=== PATIENT | female | born 1980 ===

== ENCOUNTER 2020-04-16 10:47 | Outpatient (REF) | payer OTHER, SELFPAY ==
--- NOTE | 2020-04-16 10:55 | XR_ITS ---
EXAMINATION: LEFT WRIST SERIES CLINICAL INFORMATION: Pain in the left hand COMPARISON: None TECHNIQUE: 4 views of the left wrist FINDINGS: The bones joints and soft tissues are normal. XR/XR hand wrist LT IMPRESSION: Normal x-ray series of the left wrist
== END 2020-04-16 10:48 | disposition home or self-care (01) ==
LOC: HO.XRAY 10:47
PROVIDERS: PCP Internal Medicine; Visit Provider Nurse Practitioner Family
DX: M79.642 Pain in left hand (principal)
CPT/HCPCS: 73110; 73130

== ENCOUNTER 2020-07-19 15:34 | Emergency (ER) | payer OTHER, SELFPAY ==
[2020-07-19 15:40] VITALS: BP 113/63; PULSE 84; RESP 16; TEMP 36.7; O2SAT 100; BMI 29.2
--- NOTE | 2020-07-19 16:26 | ED.EXTPRO ---
HPI - Extremity Problem General Chief complaint: Extremity Injury, Upper Stated complaint: left arm tingling and numbness Time Seen by Provider: 07/19/20 16:26 Source: patient Mode of arrival: ambulatory History of Present Illness HPI Narrative: 40 y/o female presenting with recurrent left lower arm/wrist pain, numbness and tingling for the last 2 weeks. She reports her hands swell at times but not currently swollen. It is worse in the morning. She was seen in the office in April for similar complaints. She had a normal XR at that time which was normal. She was treated with Prednisone with improvement in the pain. She works at the [employer] in [place] and has repetitive hand movements and recurrent lifting. She denies any recent trauma or injury. Related Data Home Medications Medication Instructions Recorded Confirmed meloxicam 15 mg tablet 15 mg PO DAILY 04/15/20 Previous Rx's Medication Instructions Recorded cyclobenzaprine 10 mg tablet 10 mg PO BEDTIME 30 Days #30 tab 04/15/20 ibuprofen 800 mg tablet 800 mg PO BID 15 Days #30 tab 04/15/20 prednisone 10 mg tablet 10 mg PO DAILY #18 tab 04/15/20 ibuprofen 600 mg PO Q8H PRN #20 tab 07/19/20 prednisone 20 mg PO DAILY #10 tab 07/19/20 Allergies Allergy/AdvReac Type Severity Reaction Status Date / Time acetaminophen [From PERCOCET] Allergy Unknown NAUSEA & Unverified 02/20/20 19:48 VOMITING oxycodone [From PERCOCET] Allergy Unknown NAUSEA & Unverified 02/20/20 19:48 VOMITING Review of Systems Review of Systems: Constitutional: No Fever, No Chills Musculoskeletal: + joint pain, No Myalgias Skin: No Skin Lesions, No rash Neuro: No Weakness, + Numbness Heme/Lymph: No Bruising, No Lymphadenopathy PMFSH Past Medical History Attestation statement: The following information was validated with the patient. Medical History Migraine Surgical History (Updated 04/13/20 @ 10:09 by ROSARIO Barkley) History of section S/P total abdominal hysterectomy Family History Family History (Updated 04/13/20 @ 10:10 by ROSARIO Barkley) Father Hypertension Mother No problems noted. Social History Social History Advance Directives: No Advance Directives Information Provided: Yes Physical Exam Vital Signs: Vital Signs: Last Vital Signs Temp 98.0 F 07/19/20 15:40 Pulse 84 07/19/20 15:40 Resp 16 07/19/20 15:40 BP 113/63 07/19/20 15:40 Pulse Ox 100 07/19/20 15:40 Body Mass Index 29.2 Appearance: Alert. Oriented X3. No acute distress. HEENT: normal inspection Respiratory: No respiratory distress. Skin: Skin warm and dry. Normal skin color. Normal skin turgor. No rashes. Extremities: normal left hand and wrist inspection. tender wrist on volar aspect with +Tinel sign and +Phalen test. Tender fingers 3-5 with normal ROM. Normal photograph developer strength. no thenar eminence atrophy. Neuro: Oriented X 3. Weak thumb abduction with sensory deficits reported in the median nerve distribuation. Course Course Course Narrative: 40 y/o female with recurrent left hand and lower arm pain, numbness and tingling. Similar presentation in April, improvement with steroids. No trauma. +Phalen's test. Signs and symptoms consistent with carpal tunnel syndrome. Will place in wrist velcro splint and repeat course of steroids. Will have her follow up with for evaluation of decompression. She is agreeable with plan. Discharge Plan Discharge Clinical Impression: Carpal tunnel syndrome Qualifiers: Laterality: left Qualified Code(s): G56.02 - Carpal tunnel syndrome, left upper limb Patient Disposition: Home, Self-Care Instructions: Paresthesia (ED), Carpal Tunnel Surgery (DC) Additional Instructions: Recommend trial of steroid medication to decrease the swelling. Recommend use of wrist splint for comfort, support and immobilization. Wear this at night when your sleep and as needed during the day. Use ice and elevate when possible. Limit repetitive movements and lifting with your left hand. Follow up with the orthopedic doctor for further evaluation. Prescriptions: New prednisone 20 mg tablet 20 mg PO DAILY Qty: 10 RF: 0 ibuprofen 600 mg tablet 600 mg PO Q8H PRN (Reason: pain) Qty: 20 RF: 0 No Action ibuprofen [IBU] 800 mg tablet 800 mg PO BID 15 Days Qty: 30 RF: 0 cyclobenzaprine 10 mg tablet 10 mg PO BEDTIME 30 Days Qty: 30 RF: 0 prednisone 10 mg tablet 10 mg PO DAILY Qty: 18 RF: 0 Referrals: Leandro Oseguera MD [Physician] - 1 week (left arm/hand pain for months, concern for carpal tunnel) Interventions: ED Discharge Assessment Last Done: 07/19/20 17:00 Discharge Date/Time: 07/19/20 17:01 Print Language: Mongolian
== END 2020-07-19 17:01 | disposition home or self-care (01) ==
PROVIDERS: Emergency Provider Emergency Medicine; PCP Internal Medicine
DX: G56.02 Carpal tunnel syndrome, left upper limb (principal); Z79.899 Other long term (current) drug therapy
CPT/HCPCS: 99283

== ENCOUNTER 2020-07-21 15:20 | Outpatient (REF) | payer OTHER, SELFPAY | END 2020-07-21 15:21 | disposition home or self-care (01) | LOC: HO.LAB 15:20 | PROVIDERS: PCP Internal Medicine; Visit Provider Internal Medicine | DX: Z20.822 Contact with and (suspected) exposure to COVID-19 (principal) | CPT/HCPCS: 36415; C9803; U0003; U0005 ==

== ENCOUNTER 2020-08-03 10:01 | Outpatient (REF) | payer OTHER, SELFPAY | END 2020-08-03 10:02 | disposition home or self-care (01) | LOC: HO.LAB 10:01 | PROVIDERS: Visit Provider Internal Medicine | DX: Z20.822 Contact with and (suspected) exposure to COVID-19 (principal) | CPT/HCPCS: 36415; C9803; U0003; U0005 ==

== ENCOUNTER 2021-06-10 10:31 | Outpatient (REF) | payer OTHER, SELFPAY ==
[2021-06-10 14:36] LABS: Binax Internal Control QC Valid; Binax Now Covid-19 Ag Negative (Negative)
== END 2021-06-10 10:32 | disposition home or self-care (01) ==
LOC: HO.HMGCLDS 10:31
PROVIDERS: Visit Provider Internal Medicine
DX: Z20.822 Contact with and (suspected) exposure to COVID-19 (principal)
CPT/HCPCS: 36415; C9803

== ENCOUNTER 2021-07-06 10:23 | Outpatient (REF) | payer OTHER, SELFPAY ==
--- NOTE | ~2021-07-06 | XR_ITS ---
EXAMINATION: XR CALCANEUS, RIGHT XR CALCANEUS, LEFT CLINICAL INFORMATION: Bilateral pain COMPARISON: None TECHNIQUE: Each calcaneus is imaged in lateral and Arita view projections. There are 2 views on each side, total of 4 views. FINDINGS: There is no fracture or dislocation or destructive process on either side. Bony mineralization appears normal. The subtalar joints are unremarkable. The retrocalcaneal recess is preserved on both sides. There is no calcaneal spurring. No mineralization seen along the plantar fascia. XR/XR calcaneus LT min 2V IMPRESSION: Unremarkable bilateral calcaneus.
--- NOTE | ~2021-07-06 | XR_ITS ---
EXAMINATION: XR CALCANEUS, RIGHT XR CALCANEUS, LEFT CLINICAL INFORMATION: Bilateral pain COMPARISON: None TECHNIQUE: Each calcaneus is imaged in lateral and Arita view projections. There are 2 views on each side, total of 4 views. FINDINGS: There is no fracture or dislocation or destructive process on either side. Bony mineralization appears normal. The subtalar joints are unremarkable. The retrocalcaneal recess is preserved on both sides. There is no calcaneal spurring. No mineralization seen along the plantar fascia. XR/XR calcaneus RT min 2V IMPRESSION: Unremarkable bilateral calcaneus.
== END 2021-07-06 10:24 | disposition home or self-care (01) ==
LOC: HO.XRAY 10:23
PROVIDERS: PCP Internal Medicine; Visit Provider Nurse Practitioner Acute Care
DX: M79.671 Pain in right foot (principal); M79.672 Pain in left foot
CPT/HCPCS: 73650

== ENCOUNTER 2021-09-23 14:52 | Outpatient (REF) | payer OTHER, SELFPAY ==
[2021-09-23 15:43] LABS: Appearance Urine HAZY; Color Urine YELLOW; Glucose Urine UA NEG (NEG); Leukocyte Esterase Urine 1+ (NEG); Nitrite Urine NEG (NEG); PH 5.5 (5.0-8.0); UACC Culture Trigger YES; Urine Blood 3+ (NEG); Urine Ketones NEG (NEG); Urine Protein NEG (NEG-TRACE)
[2021-09-23 15:59] LABS: Bacteria Urine 1+ /LPF; Squamous Epithelial Cell Urine 1+ /LPF
== END 2021-09-23 14:53 | disposition home or self-care (01) ==
LOC: HO.LAB 14:52
PROVIDERS: PCP Internal Medicine; Visit Provider Internal Medicine
DX: R30.0 Dysuria (principal)
CPT/HCPCS: 81001; 87086

== ENCOUNTER 2021-10-18 08:24 | Outpatient (REF) | payer OTHER, SELFPAY ==
--- NOTE | ~2021-10-18 | XR_ITS ---
EXAMINATION: XR chest 2V CLINICAL INFORMATION: Reason for Exam R05.9 - Cough, unspecified COMPARISON: None TECHNIQUE: 2 views of the chest XR/XR chest 2V FINDINGS/IMPRESSION: * Clear lungs. * No pneumothorax or pleural effusion. * Normal cardiomediastinal silhouette.
[2021-10-18 08:53] LABS: MANUAL DIFF FLAG NO
[2021-10-18 09:05] LABS: Basophils Percent Auto 0.5 % (0-2); Eosinophils Absolute Auto 0.2 X10*3/uL (0.0-0.4); Eosinophils Percent Auto 5.4 % (0-4); Hematocrit 35.9 % (37.0-47.0); Hemoglobin 11.4 g/dl (12.0-16.0); Imm Gran Abs Auto 0.01 X10*3/uL (0.00-0.03); Imm Gran Pct Auto 0.2 % (0.0-0.4); Lymphocytes Absolute Auto 1.6 X10*3/uL (1.2-4.9); Lymphocytes Percent Auto 39.4 % (20-40); Mean Corpuscular HGB Conc 31.8 g/dl (31.0-35.0); Mean Corpuscular Hemoglobin 28.9 pg (27.0-33.0); Mean Corpuscular Volume 90.9 fL (80.0-98.0); Mean Platelet Volume 10.3 fL (9.4-12.3); Monocytes Absolute Auto 0.3 X10*3/uL (0.1-1.2); Monocytes Percent Auto 8.4 % (2-11); Neutrophils Absolute Auto 1.9 x10*3/uL (2.0-8.3); Neutrophils Percent Auto 46.1 % (45-73); Platelet Count 203 X10*3/uL (160-400); Red Blood Count 3.95 X10*6/uL (4.20-5.50); White Blood Count 4.1 X10*3/uL (4.8-10.8)
[2021-10-18 09:18] LABS: Appearance Urine CLEAR; Color Urine YELLOW; Glucose Urine UA NEG (NEG); Leukocyte Esterase Urine NEG (NEG); Nitrite Urine NEG (NEG); Specific Gravity - Urine 1.025 (1.005-1.025); UACC Culture Trigger NO; Urine Blood 3+ (NEG); Urine Ketones NEG (NEG); Urine Protein NEG (NEG-TRACE)
[2021-10-18 09:27] LABS: Squamous Epithelial Cell Urine 1+ /LPF
[2021-10-18 09:28] LABS: RBC Urine 30-49 /HPF (0)
[2021-10-18 09:29] LABS: Mucus Urine TRACE /LPF
[2021-10-18 09:48] LABS: Alanine Aminotransferase 43 U/L (0-31); Albumin Level 4.1 g/dL (3.5-5.0); Alkaline Phosphatase 117 U/L (39-117); Anion Gap 10 (12-20); Aspartate Amino Transferase 37 U/L (5-31); Bilirubin Total 0.4 mg/dL (0.0-1.0); Blood Urea Nitrogen 16 mg/dL (9-16); Calcium 9.6 mg/dL (8.4-10.2); Carbon Dioxide 27 mmol/L (22-29); Chloride 108 mmol/L (96-108); Cholesterol 227 mg/dL; Estimated Glomerular Filt Rate > 60; Glucose Fasting 103 mg/dL (60-99); HDL Cholesterol 56 mg/dL; Iron 50 mcg/dL (30-160); LDL Cholesterol Calculated 157 mg/dl; Percent Iron Saturation 15 % (15-50); Potassium 4.5 mmol/L (3.3-5.1); Sodium 140 mmol/L (135-145); Total Iron Binding Capacity 323 mcg/dL (228-428); Total Protein 7.2 g/dL (6.5-8.0); Triglycerides 70 mg/dL; Unsaturated Iron Binding 273 ug/dL
[2021-10-18 10:08] LABS: TSH reflex Free T4 1.57 uIU/mL (0.32-4.0)
== END 2021-10-18 08:25 | disposition home or self-care (01) ==
LOC: HO.LAB 08:24
PROVIDERS: PCP Internal Medicine; Visit Provider Nurse Practitioner Family
DX: R30.0 Dysuria (principal); I10 Essential (primary) hypertension; E78.00 Pure hypercholesterolemia, unspecified; D64.9 Anemia, unspecified; R05.9 Cough, unspecified; Z13.1 Encounter for screening for diabetes mellitus; Z13.220 Encounter for screening for lipoid disorders
CPT/HCPCS: 36415; 71046; 80053; 80061; 81001; 83540; 84443; 85025

== ENCOUNTER 2021-12-28 08:01 | Emergency (ER) | payer OTHER, SELFPAY ==
[2021-12-28 08:54] LABS: MANUAL DIFF FLAG NO
[2021-12-28 08:56] LABS: Basophils Percent Auto 0.4 % (0-2); Eosinophils Absolute Auto 0.1 X10*3/uL (0.0-0.4); Eosinophils Percent Auto 2.1 % (0-4); Hematocrit 38.1 % (37.0-47.0); Hemoglobin 12.2 g/dl (12.0-16.0); Lymphocytes Absolute Auto 1.7 X10*3/uL (1.2-4.9); Lymphocytes Percent Auto 31.5 % (20-40); Mean Corpuscular Volume 90.7 fL (80.0-98.0); Mean Platelet Volume 9.8 fL (9.4-12.3); Monocytes Absolute Auto 0.3 X10*3/uL (0.1-1.2); Monocytes Percent Auto 5.4 % (2-11); Neutrophils Absolute Auto 3.2 x10*3/uL (2.0-8.3); Neutrophils Percent Auto 60.6 % (45-73); Platelet Count 206 X10*3/uL (160-400); Red Cell Distribution Width 11.9 % (11.0-16.0); White Blood Count 5.3 X10*3/uL (4.8-10.8)
[2021-12-28 09:04] VITALS: BP 121/63; PULSE 63; RESP 16; TEMP 36; O2SAT 99; BMI 31.6
[2021-12-28 09:14] LABS: Alanine Aminotransferase 30 U/L (0-31); Albumin Level 4.4 g/dL (3.5-5.0); Alkaline Phosphatase 117 U/L (39-117); Anion Gap 10 (12-20); Aspartate Amino Transferase 20 U/L (5-31); Bilirubin Direct 0.2 mg/dL (0.0-0.5); Bilirubin Total 0.4 mg/dL (0.0-1.0); Blood Urea Nitrogen 21 mg/dL (9-16); Calcium 9.3 mg/dL (8.4-10.2); Carbon Dioxide 24 mmol/L (22-29); Chloride 110 mmol/L (96-108); Estimated Glomerular Filt Rate > 60; Glucose Random 122 mg/dL (60-115); Potassium 4.3 mmol/L (3.3-5.1); Sodium 140 mmol/L (135-145); Total Protein 7.6 g/dL (6.5-8.0)
--- NOTE | 2021-12-28 10:23 | ECG_ITS ---
Test Reason : anemia Blood Pressure : / mmHG Vent. Rate : 066 BPM Atrial Rate : 066 BPM P-R Int : 172 ms QRS Dur : 080 ms QT Int : 406 ms P-R-T Axes : 035 006 014 degrees QTc Int : 425 ms Normal sinus rhythm Normal ECG No previous ECGs available Referred By: Vale Bustos Electronically Signed By:VEE WING
--- NOTE | 2021-12-28 10:28 | ED_ITS ---
HPI - General Adult General Chief complaint: General Medical Stated complaint: Anemia Time Seen by Provider: 12/28/21 08:08 Source: patient Mode of arrival: ambulatory Limitations: no limitations History of Present Illness HPI narrative: Patient comes to the emergency room complaining of 3 days of occasional headac hes, feeling lightheaded and very sleepy. Patient states that yesterday she was at work, patient was very tired and had to take a 20 minute neb. Patient states that this is usually not like her. Patient denies URI or UTI symptoms, no chest pain or shortness of breath. Patient states that she is known to have anemia due to iron deficiency and she is not compliant with her medications due to the side effects. Related Data Previous Rx's Medication Instructions Recorded meloxicam 15 mg tablet 15 mg PO DAILY #14 tabs 07/02/21 trazodone 50 mg tablet 50 mg PO BEDTIME PRN sleep 30 days 07/02/21 #30 tabs loratadine 10 mg tablet 10 mg PO DAILY #30 tabs 10/15/21 pseudoephedrine HCl 120 mg 120 mg PO BID PRN nasal congestion 10/15/21 tablet,extended release (Sudafed #20 tabs 12 Hour) sodium chloride 0.65 % nasal spray 2 spray intranasal BID PRN dry 10/15/21 aerosol (Saline Mist) nasal passages #45 mL ferrous sulfate 325 mg (65 mg 325 mg PO DAILY #30 tabs 12/13/21 iron) tablet,delayed release Allergies Allergy/AdvReac Type Severity Reaction Status Date / Time acetaminophen [From PERCOCET] Allergy Unknown NAUSEA & Verified 12/28/21 09:03 VOMITING oxycodone [From PERCOCET] Allergy Unknown NAUSEA & Verified 12/28/21 09:03 VOMITING Review of Systems Review of Systems: Constitutional : No Weight loss, No Fever, No Chills, No Night Sweats, complaining of Fatigue, No Malaise ENT/Mouth : No Hearing loss, No Ear Pain, No Nasal Congestion, No Sinus Pain, No Hoarseness, No sore throat, No Rhinorrhea, No Swallowing Difficulty Eyes: No Eye Pain, No Swelling, No Redness, No Foreign Body, No Discharge, No Vision Changes Cardiovascular : No Chest Pain, No SOB, No Dyspnea on Exertion, No Orthopnea, No Edema, No Palpitations Respiratory : No Cough, No Sputum, No Wheezing, No Smoke Exposure, No Dyspnea Gastrointestinal : No Nausea, No Vomiting, No Diarrhea, No Constipation, No abdominal Pain, No Hematochezia, No Melena Genitourinary : no irregular bleeding, No Dysuria, No Urinary Frequency, No Hematuria, No Urinary Incontinence, No Urgency, No Flank Pain, No Urinary Flow Changes, No Hesitancy Musculoskeletal : No joint pain, No Myalgias, No Joint Swelling Skin : No Skin Lesions, No rash Neuro : No Weakness, No Numbness, No Paresthesias, No Loss of Consciousness, c omplaining sleepiness, complaining of lightheadedness Psych : No Anxiety/Panic, No Depression, No SI/HI/AH/VH, No Social Issues, Heme/Lymph: No Bruising, No Bleeding,No Lymphadenopathy Endocrine : No Polyuria, No Polydipsia, No Temperature Intolerance [facility] Past Medical History Medical History (Updated 12/28/21 @ 11:23 by Vale Bustos MD) Anemia Migraine Surgical History History of section S/P total abdominal hysterectomy Family History Family History Father Hypertension Mother No problems noted. Social History Social History Housing: Apartment Patient Tobacco Use Status: Never used Tobacco Tobacco use type: Cigarette e-Cigarette/Vaping Use: Never Used Second Hand Smoke Exposure: No Advance Directives: No Advance Directives Information Provided: No Current occupational status: employed Cognitive needs: No Hearing needs: No Vision needs: No Physical Exam ED Vital Signs: Vital Signs - 24 hr 12/28/21 09:04 12/28/21 11:19 12/28/21 11:20 Temperature 96.8 F Pulse Rate 63 62 64 Respiratory Rate 16 Blood Pressure 121/63 114/72 124/77 Pulse Oximetry 99 Oxygen Delivery Method Room Air 12/28/21 11:21 Temperature Pulse Rate 67 Respiratory Rate Blood Pressure 136/79 Pulse Oximetry Oxygen Delivery Method BMI result Body Mass Index 31.6 Const Other: Appearance: Alert. Oriented X3. No acute distress. Eyes: Pupils equal, round and reactive to light. ENT: Pharynx normal. Neck: Normal inspection. Neck supple. No lymph nodes noted. No crepitus CVS: Normal heart rate and rhythm. Pulses normal. Normal S1 and S2 Respiratory: No respiratory distress. Breath sounds normal. No Wheezing. No rales Abdomen: Soft and nontender. No rigidity. No distention. Skin: Skin warm and dry. Normal skin color. Normal skin turgor. Extremities: No lower extremity edema. No Lacerations. No Rash Neuro: Oriented X 3. No motor deficit. No sensory deficit. Moving all extremities. No slurred speech. CN 2 through 12 grossly intact Psych: calm, cooperative, normal affect Course Course Course Narrative: I discussed with the patient hemoglobin today is normal. Patient's troponin, EKG and COVID tests are pending, orthostatic vitals pending as well. Troponin and EKG within normal limits, COVID is negative, orthostatic vitals negative, possibly vision having a viral illness. Medical Decision Making Lab Data Result diagrams: 12/28/21 08:47 12/28/21 08:47 Labs: Lab Results 12/28/21 12/28/21 12/28/21 Range/Units 08:47 08:47 08:47 WBC 5.3 (4.8-10.8) X10*3/uL RBC 4.20 (4.20-5.50) X10*6/uL Hgb 12.2 (12.0-16.0) g/dl Hct 38.1 (37.0-47.0) % MCV 90.7 (80.0-98.0) fL MCH 29.0 (27.0-33.0) pg MCHC 32.0 (31.0-35.0) g/dl RDW 11.9 (11.0-16.0) % Plt Count 206 (160-400) X10*3/uL MPV 9.8 (9.4-12.3) fL Immature Gran % (Auto) 0.0 (0.0-0.4) % Neut % (Auto) 60.6 (45-73) % Lymph % (Auto) 31.5 (20-40) % Stephenson % (Auto) 5.4 (2-11) % Eos % (Auto) 2.1 (0-4) % Baso % (Auto) 0.4 (0-2) % Lymph # (Auto) 1.7 (1.2-4.9) X10*3/uL Stephenson # (Auto) 0.3 (0.1-1.2) X10*3/uL Eos # (Auto) 0.1 (0.0-0.4) X10*3/uL Baso # (Auto) 0.0 (0.0-0.2) X10*3/uL Abs Immat Gran (auto) 0.00 (0.00-0.03) X10*3/uL Absolute Neuts (auto) 3.2 (2.0-8.3) x10*3/uL Absolute Nucleated RBC 0.000 (0.0-0.012) X10*3/uL Nucleated RBC % (auto) 0.0 (0.0-0.2) /100WBC Sodium 140 (135-145) mmol/L Potassium 4.3 (3.3-5.1) mmol/L Chloride 110 H (96-108) mmol/L Carbon Dioxide 24 (22-29) mmol/L Anion Gap 10 L (12-20) BUN 21 H (9-16) mg/dL Creatinine 0.76 (0.5-1.4) mg/dL Estim Creat Clear Calc 88.0 Estimated GFR > 60 Random Glucose 122 H (60-115) mg/dL Calcium 9.3 (8.4-10.2) mg/dL Total Bilirubin 0.4 (0.0-1.0) mg/dL Direct Bilirubin 0.2 (0.0-0.5) mg/dL AST 20 D (5-31) U/L ALT 30 (0-31) U/L Alkaline Phosphatase 117 (39-117) U/L Troponin I High Sens < 3.5 (<3.5-17.0) ng/L Total Protein 7.6 (6.5-8.0) g/dL Albumin 4.4 (3.5-5.0) g/dL COVID-19 (AWA) (Negative) COVID-19 Clin Com 12/28/21 Range/Units 10:49 WBC (4.8-10.8) X10*3/uL RBC (4.20-5.50) X10*6/uL Hgb (12.0-16.0) g/dl Hct (37.0-47.0) % MCV (80.0-98.0) fL MCH (27.0-33.0) pg MCHC (31.0-35.0) g/dl RDW (11.0-16.0) % Plt Count (160-400) X10*3/uL MPV (9.4-12.3) fL Immature Gran % (Auto) (0.0-0.4) % Neut % (Auto) (45-73) % Lymph % (Auto) (20-40) % Stephenson % (Auto) (2-11) % Eos % (Auto) (0-4) % Baso % (Auto) (0-2) % Lymph # (Auto) (1.2-4.9) X10*3/uL Stephenson # (Auto) (0.1-1.2) X10*3/uL Eos # (Auto) (0.0-0.4) X10*3/uL Baso # (Auto) (0.0-0.2) X10*3/uL Abs Immat Gran (auto) (0.00-0.03) X10*3/uL Absolute Neuts (auto) (2.0-8.3) x10*3/uL Absolute Nucleated RBC (0.0-0.012) X10*3/uL Nucleated RBC % (auto) (0.0-0.2) /100WBC Sodium (135-145) mmol/L Potassium (3.3-5.1) mmol/L Chloride (96-108) mmol/L Carbon Dioxide (22-29) mmol/L Anion Gap (12-20) BUN (9-16) mg/dL Creatinine (0.5-1.4) mg/dL Estim Creat Clear Calc Estimated GFR Random Glucose (60-115) mg/dL Calcium (8.4-10.2) mg/dL Total Bilirubin (0.0-1.0) mg/dL Direct Bilirubin (0.0-0.5) mg/dL AST (5-31) U/L ALT (0-31) U/L Alkaline Phosphatase (39-117) U/L Troponin I High Sens (<3.5-17.0) ng/L Total Protein (6.5-8.0) g/dL Albumin (3.5-5.0) g/dL COVID-19 (AWA) Negative (Negative) COVID-19 Clin Com See Note Discharge Plan Discharge Clinical Impression: Viral illness Patient Disposition: Home, Self-Care Instructions: Viral Syndrome (ED) Additional Instructions: Please follow-up with your primary care physician tomorrow. If you have any worsening or new symptoms, please return to the emergency room or call 911 Prescriptions: No Action ferrous sulfate 325 mg (65 mg iron) tablet,delayed release (DR/EC) 325 mg PO DAILY Qty: 30 0RF meloxicam 15 mg tablet 15 mg PO DAILY Qty: 14 0RF trazodone 50 mg tablet 50 mg PO BEDTIME PRN (Reason: sleep) 30 Days Qty: 30 0RF pseudoephedrine HCl [Sudafed 12 Hour] 120 mg tablet extended release 120 mg PO BID PRN (Reason: nasal congestion) Qty: 20 0RF loratadine 10 mg tablet 10 mg PO DAILY Qty: 30 0RF Saline Mist 0.65 % aerosol,spray 2 spray intranasal BID PRN (Reason: dry nasal passages) Qty: 45 0RF Stand Alone Forms: Work/School Release
[2021-12-28 10:51] LABS: Troponin-I High Sensitivity < 3.5 ng/L (<3.5-17.0)
[2021-12-28 11:14] LABS: COVID-19 Test Negative (Negative)
[2021-12-28 11:19] VITALS: BP 114/72; PULSE 62
[2021-12-28 11:20] VITALS: BP 124/77; PULSE 64
[2021-12-28 11:21] VITALS: BP 136/79; PULSE 67
== END 2021-12-28 11:46 | disposition home or self-care (01) ==
PROVIDERS: Emergency Provider Emergency Medicine; PCP Internal Medicine
DX: B34.9 Viral infection, unspecified (principal); Z20.822 Contact with and (suspected) exposure to COVID-19; R51.9 Headache, unspecified
CPT/HCPCS: 36415; 80048; 80076; 84484; 85025; 87635; 93005; 99283

== ENCOUNTER 2022-07-21 09:59 | Outpatient (REF) | payer OTHER, SELFPAY ==
[2022-07-21 10:11] LABS: MANUAL DIFF FLAG NO
[2022-07-21 10:55] LABS: Basophils Percent Auto 0.8 % (0-2); Eosinophils Absolute Auto 0.1 X10*3/uL (0.0-0.4); Eosinophils Percent Auto 2.5 % (0-4); Hematocrit 38.7 % (37.0-47.0); Hemoglobin 12.4 g/dl (12.0-16.0); Lymphocytes Absolute Auto 1.5 X10*3/uL (1.2-4.9); Lymphocytes Percent Auto 42.4 % (20-40); Mean Corpuscular Hemoglobin 28.9 pg (27.0-33.0); Mean Corpuscular Volume 90.2 fL (80.0-98.0); Mean Platelet Volume 10.7 fL (9.4-12.3); Monocytes Absolute Auto 0.3 X10*3/uL (0.1-1.2); Monocytes Percent Auto 8.8 % (2-11); Neutrophils Absolute Auto 1.6 x10*3/uL (2.0-8.3); Neutrophils Percent Auto 45.5 % (45-73); Platelet Count 212 X10*3/uL (160-400); Red Blood Count 4.29 X10*6/uL (4.20-5.50); White Blood Count 3.5 X10*3/uL (4.8-10.8)
[2022-07-21 11:22] LABS: Alanine Aminotransferase 33 U/L (0-31); Albumin Level 4.1 g/dL (3.5-5.0); Alkaline Phosphatase 125 U/L (39-117); Anion Gap 14 (12-20); Aspartate Amino Transferase 25 U/L (5-31); Bilirubin Total 0.6 mg/dL (0.0-1.0); Blood Urea Nitrogen 15 mg/dL (9-16); Calcium 9.4 mg/dL (8.4-10.2); Carbon Dioxide 26 mmol/L (22-29); Chloride 108 mmol/L (96-108); Cholesterol 264 mg/dL; Estimated Glomerular Filt Rate > 60; Glucose Fasting 88 mg/dL (60-99); HDL Cholesterol 59 mg/dL; Iron 86 mcg/dL (30-160); LDL Cholesterol Calculated 187 mg/dl; Percent Iron Saturation 29 % (15-50); Potassium 4.7 mmol/L (3.3-5.1); Sodium 143 mmol/L (135-145); Total Iron Binding Capacity 300 mcg/dL (228-428); Total Protein 6.9 g/dL (6.5-8.0); Triglycerides 93 mg/dL; Unsaturated Iron Binding 214 ug/dL
== END 2022-07-21 10:00 | disposition home or self-care (01) ==
LOC: HO.LAB 09:59
PROVIDERS: PCP Internal Medicine; Visit Provider Internal Medicine
DX: Z00.00 Encounter for general adult medical examination without abnormal findings (principal); E78.5 Hyperlipidemia, unspecified; D64.9 Anemia, unspecified
CPT/HCPCS: 36415; 80053; 80061; 83540; 85025

== ENCOUNTER 2022-07-22 15:05 | Outpatient (REF) | payer OTHER, SELFPAY ==
--- NOTE | ~2022-07-22 | MM_ITS ---
EXAMINATION: MM SCREENING DIGITAL BREAST TOMOSYNTHESIS, BILATERAL CLINICAL INFORMATION: Screening. Asymptomatic. Prior outside mammography from [place] currently unavailable. The lifetime risk of breast cancer based on the Tyrer-Cuzick Model is 6%. COMPARISON: None. TECHNIQUE: Digital breast tomosynthesis is performed in both the craniocaudal and mediolateral oblique views along with computer-aided detection (CAD). Synthesized 2D images are generated from the tomosynthesis. FINDINGS: The breasts are heterogeneously dense, which may obscure small masses (ACR BI-RADS breast composition Category c). There is no significant mass or architectural abnormality. No abnormal calcifications. The axilla are unremarkable. There is small oval circumscribed nodule posterior central left breast with peripheral notched contour suggesting an intramammary node. The skin contours are smooth. No skin thickening or coarsening of the stromal markings. MM/MM tomosynthesis screening BI IMPRESSION: No mammographic evidence of malignancy. ASSESSMENT: BI-RADS 2: Benign RECOMMENDATION: Routine annual mammography screening. This patient's information was entered into a reminder system with a target due date for their next mammogram.
== END 2022-07-22 15:06 | disposition home or self-care (01) ==
LOC: HO.MAMMO 15:05
PROVIDERS: PCP Internal Medicine; Visit Provider Internal Medicine
DX: Z12.31 Encounter for screening mammogram for malignant neoplasm of breast (principal)
CPT/HCPCS: 77063; 77067

== ENCOUNTER 2022-10-18 08:15 | Outpatient (REF) | payer OTHER, SELFPAY ==
--- NOTE | ~2022-10-18 | XR_ITS ---
EXAMINATION: XR LUMBOSACRAL SPINE WITH OBLIQUES CLINICAL INFORMATION: Low back pain COMPARISON: None available. TECHNIQUE: AP, both oblique, and lateral views of the lumbar spine. Lateral view of the lumbosacral junction. FINDINGS: Bone alignment is normal. No fracture or dislocation. Disc spaces are normal. No pars defect. Mild bilateral facet arthritis at L5-S1. Paraspinal soft tissues are normal. XR/XR lumbar spine 4V min IMPRESSION: Mild facet arthritis at L5-S1.
[2022-10-18 09:41] LABS: MANUAL DIFF FLAG NO
[2022-10-18 10:32] LABS: Basophils Percent Auto 0.6 % (0-2); Eosinophils Absolute Auto 0.1 X10*3/uL (0.0-0.4); Eosinophils Percent Auto 1.7 % (0-4); Hematocrit 38.2 % (37.0-47.0); Hemoglobin 12.5 g/dl (12.0-16.0); Imm Gran Abs Auto 0.01 X10*3/uL (0.00-0.03); Imm Gran Pct Auto 0.3 % (0.0-0.4); Lymphocytes Absolute Auto 1.3 X10*3/uL (1.2-4.9); Lymphocytes Percent Auto 36.4 % (20-40); Mean Corpuscular HGB Conc 32.7 g/dl (31.0-35.0); Mean Corpuscular Hemoglobin 29.7 pg (27.0-33.0); Mean Corpuscular Volume 90.7 fL (80.0-98.0); Mean Platelet Volume 10.5 fL (9.4-12.3); Monocytes Absolute Auto 0.3 X10*3/uL (0.1-1.2); Monocytes Percent Auto 7.2 % (2-11); Neutrophils Absolute Auto 1.9 x10*3/uL (2.0-8.3); Neutrophils Percent Auto 53.8 % (45-73); Platelet Count 222 X10*3/uL (160-400); Red Blood Count 4.21 X10*6/uL (4.20-5.50); Red Cell Distribution Width 11.9 % (11.0-16.0); White Blood Count 3.5 X10*3/uL (4.8-10.8)
[2022-10-18 10:40] LABS: Appearance Urine Clear; Color Urine Yellow; Glucose Urine UA Negative (Negative); Leukocyte Esterase Urine Small (1+) (Negative); Nitrite Urine Negative (Negative); PH 6.5 (5.0-9.0); UMIC TRIGGER UA YES; Urine Blood Large (3+) (Negative); Urine Ketones Negative (Negative); Urine Protein Negative (Neg-Trace)
[2022-10-18 10:44] LABS: Bacteria Urine Trace (None Seen); Hyaline Casts Urine 0-2 /LPF (0-2); RBC Urine >20 /HPF (0-2); Squamous Epithelial Cell Urine 0-2 /HPF (0-2)
[2022-10-18 10:59] LABS: Alanine Aminotransferase 24 U/L (0-31); Albumin Level 4.3 g/dL (3.5-5.0); Alkaline Phosphatase 105 U/L (39-117); Anion Gap 10 (12-20); Aspartate Amino Transferase 21 U/L (5-31); Bilirubin Total 0.6 mg/dL (0.0-1.0); Blood Urea Nitrogen 19 mg/dL (9-16); C Reactive Protein 0.78 mg/dL (< or = 0.50); Calcium 9.6 mg/dL (8.4-10.2); Carbon Dioxide 27 mmol/L (22-29); Chloride 107 mmol/L (96-108); Estimated Glomerular Filt Rate > 60; Glucose Random 79 mg/dL (60-115); Potassium 3.9 mmol/L (3.3-5.1); Sodium 140 mmol/L (135-145); Total Protein 7.4 g/dL (6.5-8.0)
[2022-10-18 11:00] LABS: Creatinine Urine 109.84 mg/dL; Protein/Creatinine Ratio, Ur 0.09 (<0.2); Total Protein Urine Random 10 mg/dL (<12)
[2022-10-18 11:16] LABS: Rheumatoid Factor < 13.0 IU/mL (<15.0)
[2022-10-18 11:26] LABS: Erythrocyte Sedimentation Rate 27 MM/HR (0-20)
[2022-10-19 07:25] LABS: HBc Num1 0.09 S/CO (0.00-0.79); HBsAGNum1 0.34 S/CO (0.00-0.99); Hepatitis A Antibody IgM 0.25 Index (0-0.79); Hepatitis B Core Antibody Nonreactive (Nonreactive); Hepatitis B Surface Antigen Negative (Negative); ~HepC Num1 0.15 S/CO (0.00-0.79); ~Hepatitis A Antibody IgM Nonreactive (Nonreactive); ~Hepatitis B Surface Antibody NONREACTIVE (Nonreactive); ~Hepatitis C Antibody Nonreactive (Nonreactive)
[2022-10-21 07:53] LABS: Anti DNA DS Antibody 2 IU/mL; Antibody to SS-A Antigen <1.0 NEG AI (<1.0 NEG); Antibody to SS-B Antigen <1.0 NEG AI (<1.0 NEG); SM/Ribonucleoprotein Ab <1.0 NEG AI (<1.0 NEG); Smith Protein <1.0 NEG AI (<1.0 NEG)
[2022-10-21 10:03] LABS: Anti Nuclear Antibody Screen NEGATIVE (NEGATIVE)
[2022-10-21 12:14] LABS: IgA 247 mg/dL (47-310); IgG 1441 mg/dL (600-1640); IgM 169 mg/dL (50-300)
[2022-10-21 17:18] LABS: Complement C3 179 mg/dL (83-193)
[2022-10-21 22:04] LABS: Prot Elec - Albumin 4.3 g/dL (3.8-4.8); Prot Elec - Alpha1 0.3 g/dL (0.2-0.3); Prot Elec - Alpha2 0.7 g/dL (0.5-0.9); Prot Elec - Beta 1 0.5 g/dL (0.4-0.6); Prot Elec - Beta 2 0.4 g/dL (0.2-0.5); Prot Elec - Gamma 1.2 g/dL (0.8-1.7); Prot Elec - Total Protein 7.3 g/dL (6.1-8.1)
[2022-10-23 12:23] LABS: Cyclic Citrullinated Peptide <16 UNITS
== END 2022-10-18 08:16 | disposition home or self-care (01) ==
LOC: HO.XRAY 08:15
PROVIDERS: PCP Internal Medicine; Visit Provider Student in an Organized Health Care Education/Training Program
DX: Z11.59 Encounter for screening for other viral diseases (principal); M51.36 Other intervertebral disc degeneration, lumbar region; M32.9 Systemic lupus erythematosus, unspecified; M06.9 Rheumatoid arthritis, unspecified
CPT/HCPCS: 36415; 72110; 80053; 81001; 82784; 84156; 84165; 85025; 85652; 86038; 86140; 86160; 86200; 86225; 86235; 86334; 86431; 86704; 86706; 86709; 86803; 87340; 99202

== ENCOUNTER 2023-02-21 08:48 | Outpatient (AMB) | payer OTHER, SELFPAY ==
[2023-02-21 08:53] VITALS: BP 110/60; PULSE 68; TEMP 36.5; O2SAT 98
--- NOTE | 2023-02-21 08:53 | MHC.OFFVIS ---
Intake Vital Signs 02/21/23 08:53 Height 5 ft Weight 153 lb 7.068 oz BMI 30.0 BP 110/60 Blood Pressure Location Rt brachial Position Sitting Pulse 68 Pulse Source Pulse Oximeter Temp 97.7 F Temp Source Skin Pulse Oximetry (%) 98 Intake Visit Reasons: OA Intake Note: Pt seen today for OA follow up. C/o bl hand pain and numbing; left sided neck and shoulder pain started yesterday. 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 Fire Control System Installer Name: Darien [id number] Accompanied by: Self / Same As Patient Allergies acetaminophen [From PERCOCET] Allergy (Unknown, Verified 02/21/23 08:57) NAUSEA & VOMITING oxycodone [From PERCOCET] Allergy (Unknown, Verified 02/21/23 08:57) NAUSEA & VOMITING Medication List - Last Reconciled 02/21/23 by Vita Dickson MD cyclobenzaprine 5 mg PO BEDTIME PRN loratadine 10 mg PO DAILY meloxicam 15 mg PO DAILY PRN sodium chloride 0.65% (Saline Mist) 2 sprays intranasal BID PRN [thumb spica wear nightly and as much as possible throughout the day] trazodone 50 mg PO BEDTIME PRN 30 days HPI HPI Comments History of Present Illness Details Patient returns for follow-up after completion of her blood work. Continues to be about the same. Is having neck pain that intermittently radiates to her left upper back and left shoulder. She also has left wrist pain. She stated that she was diagnosed with bilateral called per tunnel years ago, she does not recall having a nerve conduction study. Initial history: This is a 42-year-old female presents for evaluation of multiple joint pain. The condition started back in 2019. Patient states that she has pain in her hands, fingers, feet especially in her heels. She also has lower back pain that is nonradiating. She has morning stiffness of her hands lasting for 15-30 minutes improved with meloxicam, panadol and a hot shower. States that occasionally her fingers are swollen and her rings are tight. She mentions that she had therapy for her left hand a year ago and it provided some relief, she was told that she might require surgery. She has no history of DVT/PE. She has a cousin with rheumatoid arthritis. Denies any fevers or rash. 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 [employer] Current occupational exposures/hazards: No Cognitive needs: No Hearing needs: No Vision needs: No Review of Systems Const Reports fatigue ENT Reports neck pain Musc Reports back pain, Reports arthralgias, Reports limited range of motion, Reports neck pain and Reports stiffness Endo Reports fatigue Physical Exam Vital Signs: Last Vital Signs Temp 97.7 F 02/21/23 08:53 Pulse 68 02/21/23 08:53 BP 110/60 02/21/23 08:53 Pulse Ox 98 02/21/23 08:53 BMI result Body Mass Index 30.0 Const General: cooperative, healthy appearing and comfortable Nutritional Appearance: overweight Orientation/consciousness: patient oriented x3 Limitations: no limitations HEENT Head: Yes normocephalic and Yes atraumatic Mouth: moist mucous membranes Resp Effort & Inspection: normal respiratory effort and able to speak in complete sentences Neuro General: patient oriented x3 Extrem Other: Positive Jose's test left hand No swollen or tender joints in either wrist or hand bilaterally No tender flexor or extensor tendons bilaterally Normal nailfold capillaroscopy Normal range of motion of upper extremities Negative Tinel sign bilaterally Low midback tenderness Negative straight leg raise test Assessment & Plan Assessment & Plan (1) Polyarthralgia: Code(s): M25.50 - Pain in unspecified joint Plan: This is a 42-year-old female who presents for evaluation of multiple joint pain. Upon evaluation I do not see any signs of autoimmune rheumatic disease. Comprehensive serology is unremarkable. Symptoms rather consistent with mechanical pain. (2) Degenerative disc disease, lumbar: Code(s): M51.36 - Other intervertebral disc degeneration, lumbar region Plan: L-spine x-ray shows L5-S1 facet arthritis. Referred patient to PT With regards to her neck pain, likely due to degenerative arthritis with some cervical and trapezius muscle spasm. Prescribed Flexeril trial. Advised patient that it can cause dizziness/lightheadedness and she cannot operate heavy machinery or drive if she feels groggy/dizzy. If helpful she can request refills from her PCP (3) Radial styloid tenosynovitis of left hand: Code(s): M65.4 - Radial styloid tenosynovitis [de Quervain] Plan: Prescribe a thumb spica splint Follow-up as needed Plan I spent 26 minutes reviewing patient's chart, evaluating patient, placing orders, counseling patient and documenting in the chart Medications: New [thumb spica] wear nightly and as much as possible throughout the day 1 ea 0RF M65.4 - Radial styloid tenosynovitis [de Quervain] cyclobenzaprine 5 mg PO BEDTIME PRN 10 tabs 1RF muscle spasm Coding Level of Care Code Est Pt Level 4 (25674) Diagnoses Polyarthralgia M25.50 Degenerative disc disease, lumbar M51.36 Radial styloid tenosynovitis of left hand M65.4
== END 2023-02-21 09:16 | disposition home or self-care (01) ==
PROVIDERS: PCP Internal Medicine; Visit Provider Student in an Organized Health Care Education/Training Program
DX: M25.50 Pain in unspecified joint (principal); M51.36 Other intervertebral disc degeneration, lumbar region; M65.4 Radial styloid tenosynovitis [de Quervain]
CPT/HCPCS: 99214

== ENCOUNTER → 2023-02-21 08:48 | Outpatient (BNVA) | payer OTHER, SELFPAY | PROVIDERS: PCP Internal Medicine; Visit Provider Student in an Organized Health Care Education/Training Program | DX: M25.50 Pain in unspecified joint (principal); M51.36 Other intervertebral disc degeneration, lumbar region; M65.4 Radial styloid tenosynovitis [de Quervain] | CPT/HCPCS: 99212 ==

== ENCOUNTER 2023-06-03 16:25 | Emergency (ER) | payer OTHER, SELFPAY | END 2023-06-03 18:32 | disposition left against medical advice (07) | PROVIDERS: Emergency Provider Emergency Medicine; PCP Internal Medicine | DX: J02.9 Acute pharyngitis, unspecified (principal) ==

== ENCOUNTER 2023-06-09 15:28 | Emergency (ER) | payer OTHER, SELFPAY ==
[2023-06-09 15:52] VITALS: BP 128/56; PULSE 82; RESP 18; TEMP 36; O2SAT 98; BMI 30.5
[2023-06-09 17:42] VITALS: BP 115/76; PULSE 86; RESP 14; TEMP 37; O2SAT 99
--- NOTE | 2023-06-09 18:28 | ED.URI ---
HPI - URI/Sore Throat General Chief Complaint: Upper Respiratory Symptoms Stated Complaint: Cough/Headache X 3 weeks Time Seen by Provider: 06/09/23 17:40 Source: patient Mode of arrival: ambulatory Limitations: no limitations History of Present Illness HPI Narrative: Patient is a 43-year-old female who presents emergency department for evaluation of upper respiratory symptoms for the past 3 weeks without much improvement despite use of OTC medications. She reports intermittent productive cough, nasal congestion, pressure over her cheek bones, intermittent headache and scratchy throat. Denies fevers, chills, dizziness, neck pain, neck stiffness, chest pain, shortness of breath, difficulty breathing, nausea, vomiting, abdominal pain, numbness or tingling of the extremities, genitourinary symptoms. Related Data Home Medications Medication Instructions Recorded Confirmed meloxicam 15 mg tablet 15 mg PO DAILY PRN 10/18/22 10/24/22 Previous Rx's Medication Instructions Recorded trazodone 50 mg tablet 50 mg PO BEDTIME PRN sleep 30 days 07/02/21 #30 tabs loratadine 10 mg tablet 10 mg PO DAILY #30 tabs 10/15/21 sodium chloride 0.65 % nasal spray 2 spray intranasal BID PRN dry 10/15/21 aerosol (Saline Mist) nasal passages #45 mL cyclobenzaprine 5 mg tablet 5 mg PO BEDTIME PRN muscle spasm 02/21/23 #10 tabs thumb spica #1 ea 02/21/23 amoxicillin 875 mg-potassium 1 tab PO BID #14 tabs 06/09/23 clavulanate 125 mg tablet Allergies Allergy/AdvReac Type Severity Reaction Status Date / Time oxycodone [From PERCOCET] Allergy Unknown NAUSEA & Verified 06/09/23 15:52 VOMITING Review of Systems Review of Systems: Yes all other systems are reviewed and are negative PMFSH Past Medical History Attestation statement: The following information was validated with the patient. Source: old records reviewed Onset Date is defined in the Problem List Problems that require an onset date and time if occurred within 24 hrs of arrival to the ED Aortic Dissection and Rupture; Neurologic impairment; Cardiopulmonary Arrest; Endotracheal Intubation; Insertion or Replacement of Mechanical Circulatory Assist Device Medical History Anemia Carpal tunnel syndrome Migraine Surgical History S/P total abdominal hysterectomy History of section Family History Family History Father Hypertension Mother Thyroid disease Osteoarthritis Social History Social History Housing: Apartment Patient Tobacco Use Status: Never used Tobacco e-Cigarette/Vaping Use: Never Used Second Hand Smoke Exposure: No Advance Directives: No Advance Directives Information Provided: No service: No Current occupational status: employed 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 No acute distress.?Normal affect. Eyes: Pupils equal, round and reactive to light.? ENT: TM normal bilaterally. Pharynx mildly erythematous without tonsillar hypertrophy or exudates. No trismus. No drooling. Uvula is midline. Bilateral maxillary sinus tenderness upon palpation. Neck: Normal inspection.? Neck supple.??No cervical adenopathy CVS: Heart sounds normal. Normal heart rate and rhythm.? Pulses normal.?? Respiratory: No respiratory distress.? Lung sounds clear to auscultation bilaterally?? Abdomen: Soft and non-tender. Normoactive bowel sounds. Skin: Skin warm and dry.? Normal skin color.? ? Extremities: No lower extremity edema.? Neuro: Moves all extremities spontaneously. Sensation intact bilaterally. No motor deficits. Ambulates with normal steady gait. Medical Decision Making Medical Decision Making MDM Narrative: Patient is a 43-year-old female presenting for evaluation of upper respiratory symptoms. COVID-19 /influenza/RSV testing is negative. CXR without acute cardiopulmonary abnormality. At this time history and physical exam not consistent with ACS/PE/pneumonia. Well-appearing, nontoxic, afebrile, no tachycardia or tachypnea/hypoxia. Speaking clear full sentences, ambulatory with steady gait. Symptoms at this time most consistent with acute sinusitis. prescription for antibiotics was sent to pharmacy, in addition Discussed conservative treatment including rest, hydration, Tylenol/ibuprofen as needed for fever and body aches, saline nasal spray /rinses, humidifier, [id number] cold medication. Advised to follow-up with primary care provider as needed, discussed reasons to return back to the emergency department. All questions were answered. Patient discharged home in stable condition. Provided with a return to work/school note. Differential Diagnosis Differential Diagnoses: The differential diagnosis associated with the presentation includes ( See narrative above) Admission/Observation Consideration of admission/observation: Escalation of care including admission/observation considered ( see narrative above) Lab Data MDM Lab Attestation statement: I reviewed the patient's lab results. ( see narrative above) Labs: Lab Results 06/09/23 Range/Units 16:55 Influenza Type A (PCR) NEGATIVE (Negative) Influenza Type B (PCR) NEGATIVE (Negative) RSV RNA Qual (PCR) NEGATIVE (Negative) SARS-CoV-2 RNA (RT-PCR) NEGATIVE (Negative) Independent Interpretation I performed an independent interpretation of an: Plain X-Ray ( I personally interpreted chest x-ray and agree with radiologist impression.) Radiology Impression Discussion of test interpretation with radiology: I have reviewed the radiologist's reading. Radiologist Impression: XR/XR chest 2V IMPRESSION: No acute cardiopulmonary disease. Prescription Management I considered prescription management with: Pain Medication ( acetaminophen/ibuprofen) and Antibiotic Discharge Plan Discharge Clinical Impression: Sinusitis Qualifiers: Sinusitis location: maxillary Chronicity: acute Recurrence: non-recurrent Qualified Code(s): J01.00 - Acute maxillary sinusitis, unspecified Patient Disposition: Home, Self-Care Instructions: Sinusitis (ED) Prescriptions: New amoxicillin-pot clavulanate 875-125 mg tablet 1 tab PO BID Qty: 14 0RF No Action trazodone 50 mg tablet 50 mg PO BEDTIME PRN (Reason: sleep) 30 Days Qty: 30 0RF loratadine 10 mg tablet 10 mg PO DAILY Qty: 30 0RF Saline Mist 0.65 % aerosol,spray 2 spray intranasal BID PRN (Reason: dry nasal passages) Qty: 45 0RF meloxicam 15 mg tablet 15 mg PO DAILY PRN (DME) thumb spica See Rx Instructions .Route .MEDSUPPLY Qty: 1 0RF Rx Instructions: wear nightly and as much as possible throughout the day cyclobenzaprine 5 mg tablet 5 mg PO BEDTIME PRN (Reason: muscle spasm) Qty: 10 1RF Referrals: Cristina Daniels MD [Primary Care Provider] -
== END 2023-06-09 19:21 | disposition home or self-care (01) ==
PROVIDERS: Emergency Provider Emergency Medicine; PCP Internal Medicine
DX: J01.00 Acute maxillary sinusitis, unspecified (principal); R05.9 Cough, unspecified; R51.9 Headache, unspecified; R09.81 Nasal congestion; R06.02 Shortness of breath; Z20.822 Contact with and (suspected) exposure to COVID-19; Z20.828 Contact with and (suspected) exposure to other viral communicable diseases
CPT/HCPCS: 0241U; 71046; 99283

== ENCOUNTER 2023-07-04 08:18 | Outpatient (AMB) | payer OTHER, SELFPAY ==
[2023-07-04 08:50] VITALS: BP 116/72; PULSE 67; TEMP 36.6; O2SAT 98; BMI 31.2
--- NOTE | 2023-07-04 08:50 | MHC.OFFWIV ---
Intake Vital Signs 07/04/23 08:50 Height 5 ft Weight 160 lb BMI 31.2 BP 116/72 Blood Pressure Location Lt brachial Position Sitting Pulse 67 Pulse Source Pulse Oximeter Temp 97.9 F Temp Source Temporal Artery Scan Pulse Oximetry (%) 98 Oxygen Delivery Method Room Air Intake Visit Reasons: EP RT side knee injury/Lump bruising (lobby) Intake Note: pt is here today for rt side knee injury lump and bruising started 1 weeks ago Patient Tobacco Use Status: Never used Tobacco Allergies oxycodone [From PERCOCET] Allergy (Unknown, Verified 07/04/23 09:13) NAUSEA & VOMITING Medication List - Last Reconciled 07/04/23 by SAMMY Wolf cyclobenzaprine 5 mg PO BEDTIME PRN loratadine 10 mg PO DAILY meloxicam 15 mg PO DAILY PRN sodium chloride 0.65% (Saline Mist) 2 sprays intranasal BID PRN [thumb spica wear nightly and as much as possible throughout the day] trazodone 50 mg PO BEDTIME PRN 30 days Do you need a note to return to daycare/school/sports/work: Yes HPI HPI Comments History of Present Illness Details Patient is a 43-year-old female here today for a sick visit. Her chief complaint is right knee pain x1 week. She denies any trauma to the area, states that the inside aspect of her knee became tender to the touch. Denies hearing any cracking or crepitus. Patient brought picture of her knee in for which demonstrated some bruising. Patient does not take blood thinners. Patient is able to walk and bear weight on the extremity. 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[employer] Current occupational exposures/hazards: No Cognitive needs: No Hearing needs: No Vision needs: No Review of Systems Const Details: Constitutional : No Weight loss, No Fever, No Chills, No Fatigue, No Malaise Cardiovascular : No Chest Pain, No SOB, No Dyspnea on Exertion, No Orthopnea, No Edema, No Palpitations Respiratory : No Cough, No Sputum, No Wheezing Gastrointestinal : No Nausea, No Vomiting, No Diarrhea, No Constipation, No abdominal Pain, No Hematochezia, No Melena Musculoskeletal : Admits right knee pain, middle aspect Skin : No Skin Lesions, No rash Neuro : No Weakness, No Numbness, No Dizziness, No Headache Heme/Lymph: Admits some Bruising, No Bleeding,No Lymphadenopathy All other systems reviewed and are negative Physical Exam Vital Signs: Last Vital Signs Temp 97.9 F 07/04/23 08:50 Pulse 67 07/04/23 08:50 BP 116/72 07/04/23 08:50 Pulse Ox 98 07/04/23 08:50 Oxygen Delivery Method Room Air 07/04/23 08:50 BMI result Body Mass Index 31.2 Vital sign review and stable Const Other: Appearance: Alert.? Oriented X3.? No acute distress.? Neck: Normal inspection.? Neck supple.? CVS: Normal heart rate and rhythm.? Pulses normal.? Respiratory: No respiratory distress.? Breath sounds normal.? Skin: Skin warm and dry.? Normal skin color.? Normal skin turgor.? Extremities: No lower extremity edema.? No calf ttp. 5/5 strength to bilateral upper and lower extremities. Small, tender palpable, moveable, mass on the medial aspect of the right knee. Back: No midline tenderness, no C-spine tenderness, full range of motion, no CVA tenderness bilaterally Neuro: Oriented X 3.? No motor deficit.? No sensory deficit. CN 2-12 intact Assessment & Plan Assessment & Plan (1) Right knee pain: Comment: Will order x-ray, ultrasound. Patient has been instructed to rest the joint. Patient has meloxicam prescription PRN she can utilize for pain. Code(s): M25.561 - Pain in right knee Qualifiers: Chronicity: acute Qualified Code(s): M25.561 - Pain in right knee Plan: Follow-up with PCP. Plan Take your medications as prescribed. If you were prescribed antibiotics today, it is important that you take your medication to their entirety, do not skip any doses, do not finish them early. Follow-up with your primary care provider this week. Return to the emergency department with new or worsening symptoms. Such as fevers, chills, chest pain, shortness of breath, nausea, vomiting, dizziness, headache, vision changes, lethargy In case of emergency call 911 Orders: Orders US extremity nonvascular [place] Today M25.561 - Pain in right knee Coding Level of Care Code Est Pt Level 3 (62780) Diagnoses Acute pain of right knee M25.561 Chronicity: acute Time Spent (min) 30
== END 2023-07-04 09:41 | disposition home or self-care (01) ==
PROVIDERS: PCP Internal Medicine; Visit Provider Nurse Practitioner Primary Care
DX: M25.561 Pain in right knee (principal)
CPT/HCPCS: 99213

== ENCOUNTER 2023-07-04 09:13 | Outpatient (REF) | payer OTHER, SELFPAY ==
--- NOTE | ~2023-07-04 | XR_ITS ---
EXAMINATION: XR KNEE, RIGHT CLINICAL INFORMATION: Pain in right knee COMPARISON: None available. TECHNIQUE: Four views of the right knee. FINDINGS: No fracture or joint effusion. Alignment is anatomic. Joint spaces are maintained. No abnormal soft tissue calcification. XR/XR knee RT 4V IMPRESSION: Unremarkable right knee exam.
== END 2023-07-04 09:14 | disposition home or self-care (01) ==
LOC: HO.HMGCX 09:13
PROVIDERS: PCP Internal Medicine; Visit Provider Nurse Practitioner Primary Care
DX: M25.561 Pain in right knee (principal)
CPT/HCPCS: 73564

== ENCOUNTER 2023-07-17 17:29 | Emergency (ER) | payer OTHER, SELFPAY ==
--- NOTE | ~2023-07-17 | US_ITS ---
EXAMINATION: US VENOUS ULTRASOUND WITH DOPPLER LOWER EXTREMITY, RIGHT CLINICAL INFORMATION: Pain, swelling COMPARISON: None available. TECHNIQUE: Ultrasound of the deep veins is performed from the hip to the calf with compression sonography and color and pulse Doppler assessment. Spectral analysis with color-flow imaging is performed. FINDINGS: There is normal venous compression and respiratory variation and augmented flow. The visualized common femoral vein, superficial femoral vein, profunda femoral vein, popliteal vein, and the trifurcation region shows no evidence of deep venous thrombosis. There is no significant popliteal fossa cyst. If the patient's symptoms persist, followup ultrasound in 5 days 7 days might be of value to exclude proximal propagation from a non-visualized calf vein. US/US venous duplex LE RT IMPRESSION: No DVT demonstrated in the right lower extremity.
[2023-07-17 18:15] VITALS: BP 118/69; PULSE 110; RESP 18; TEMP 37; O2SAT 96; BMI 31.5
--- NOTE | 2023-07-17 18:20 | ED.GENADULT ---
HPI - General Adult General Chief complaint: Upper Respiratory Symptoms Stated complaint: kali, body and head ache Time Seen by Provider: 07/17/23 21:26 Source: patient Mode of arrival: ambulatory Limitations: language barrier (Guatemalan-speaking medical office asst utilized) History of Present Illness HPI narrative: Patient is a 43-year-old female who presents emergency department for evaluation of body aches, intermittent headache, productive cough with green phlegm, subjective fevers, right calf pain. Symptom onset was yesterday. Denies any known sick contacts. Denies dizziness, neck pain, chest pain, shortness of breath, nausea, vomiting, abdominal pain, numbness or tingling of the extremities. Denies personal history of DVT/PE/malignancy Related Data Home Medications Medication Instructions Recorded Confirmed meloxicam 15 mg tablet 15 mg PO DAILY PRN 10/18/22 07/04/23 Previous Rx's Medication Instructions Recorded trazodone 50 mg tablet 50 mg PO BEDTIME PRN sleep 30 days 07/02/21 #30 tabs loratadine 10 mg tablet 10 mg PO DAILY #30 tabs 10/15/21 sodium chloride 0.65 % nasal spray 2 spray intranasal BID PRN dry 10/15/21 aerosol (Saline Mist) nasal passages #45 mL cyclobenzaprine 5 mg tablet 5 mg PO BEDTIME PRN muscle spasm 02/21/23 #10 tabs thumb spica #1 ea 02/21/23 Allergies Allergy/AdvReac Type Severity Reaction Status Date / Time oxycodone [From PERCOCET] Allergy Unknown NAUSEA & Verified 07/17/23 18:20 VOMITING Review of Systems Review of Systems: Yes all other systems are reviewed and are negative PMFSH Past Medical History Attestation statement: The following information was validated with the patient. 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 No acute distress.?Normal affect. Eyes: Pupils equal, round and reactive to light.? ENT: Pharynx normal.??TM normal bilaterally. Neck: Normal inspection.? Neck supple.??No cervical lymphadenopathy CVS: Heart sounds normal. Normal heart rate and rhythm.? Pulses normal.?? Respiratory: No respiratory distress.? Lung sounds clear to auscultation bilaterally?? Abdomen: Soft and non-tender. Normoactive bowel sounds. ? Skin: Skin warm and dry.? Normal skin color.? Extremities: No lower extremity edema.? ? Neuro: Moves all extremities spontaneously. Sensation intact bilaterally. No focal neuro deficits. Ambulates with normal steady gait. Course Course Course Narrative: RME performed by Rosemary Gutierrez PA-C. Patient is a 43 year old assigned female at presenting to the emergency department feeling generally unwell and right calf pain / swelling. Detailed physical exam and review of systems are deferred to the cash applications coordinator. Imaging and swabs ordered. Patient placed back in the waiting room pending room availability and results. Medical Decision Making Medical Decision Making MDM Narrative: Patient is a 43-year-old female presenting for evaluation of upper respiratory symptoms. COVID-19 /RSV/influenza testing negative. Duration of symptoms has been 1 day, I suspect likely a viral upper respiratory infection, patient was advised I do not see indication for antibiotics at this time. At this time history and physical exam not consistent with ACS/PE/pneumonia. Well-appearing, nontoxic, afebrile, no tachycardia or tachypnea/hypoxia. Speaking clear full sentences, ambulatory with steady gait. Venous duplex ultrasound does not reveal evidence of DVT, most likely the pain in her right calf is muscular in nature Discussed conservative treatment including rest, hydration, Tylenol/ibuprofen as needed for fever and body aches, saline nasal spray, humidifier, [id number] cold medication. Advised to follow-up with primary care provider as needed, discussed reasons to return back to the emergency department. All questions were answered. Patient discharged home in stable condition. Provided with a return to work/school note. Differential Diagnosis Differential Diagnoses: The differential diagnosis associated with the presentation includes ( See narrative above) Admission/Observation Consideration of admission/observation: Escalation of care including admission/observation considered ( see narrative above) Lab Data MDM Lab Attestation statement: I reviewed the patient's lab results. ( see narrative above) Labs: Lab Results 07/17/23 Range/Units 19:48 Influenza Type A (PCR) NEGATIVE (Negative) Influenza Type B (PCR) NEGATIVE (Negative) RSV RNA Qual (PCR) NEGATIVE (Negative) SARS-CoV-2 RNA (RT-PCR) NEGATIVE (Negative) Independent Interpretation I performed an independent interpretation of an: Ultrasound (No evidence of DVT) Radiology Impression Discussion of test interpretation with radiology: I have reviewed the radiologist's reading. Radiologist Impression: US/US venous duplex LE RT IMPRESSION: No DVT demonstrated in the right lower extremity. Independent Historian Clinical information obtained from an independent historian. History obtained from or confirmed by: Spouse (Present who confirms history) External Record Review External record reviewed: Outpatient record Prescription Management I considered prescription management with: Pain Medication ( acetaminophen/ibuprofen) Discharge Plan Discharge Clinical Impression: Upper respiratory tract infection Patient Disposition: Home, Self-Care Instructions: Upper Respiratory Infection (ED) Additional Instructions: Be sure to rest, stay well hydrated drinking plenty of fluids, eat small frequent meals. Tylenol/ibuprofen can be used as needed for fever/pain. [id number] cold medications may be helpful as well for symptoms. Saline nasal spray, humidifier may be helpful for nasal congestion. You may return to the emergency department with any new or worsening symptoms or concerns. Follow-up with your primary care provider as needed. Should remain out of school/ work until symptoms have resolved and have been without a fever for 24 hours without the use of Tylenol or ibuprofen. Prescriptions: No Action trazodone 50 mg tablet 50 mg PO BEDTIME PRN (Reason: sleep) 30 Days Qty: 30 0RF loratadine 10 mg tablet 10 mg PO DAILY Qty: 30 0RF Saline Mist 0.65 % aerosol,spray 2 spray intranasal BID PRN (Reason: dry nasal passages) Qty: 45 0RF meloxicam 15 mg tablet 15 mg PO DAILY PRN (DME) thumb spica See Rx Instructions .Route .MEDSUPPLY Qty: 1 0RF Rx Instructions: wear nightly and as much as possible throughout the day cyclobenzaprine 5 mg tablet 5 mg PO BEDTIME PRN (Reason: muscle spasm) Qty: 10 1RF Referrals: Cristina Daniels MD [Primary Care Provider] - Stand Alone Forms: Work/School Release
[2023-07-17 20:29] LABS: Influenza A PCR NEGATIVE (Negative); Influenza B PCR NEGATIVE (Negative); Resp Syncy Virus RNA Qual PCR NEGATIVE (Negative); SARS COV2 PCR INHOUSE NEGATIVE (Negative)
== END 2023-07-17 22:21 | disposition home or self-care (01) ==
PROVIDERS: Physician Assistant Medical; Emergency Provider Emergency Medicine; PCP Internal Medicine
DX: J06.9 Acute upper respiratory infection, unspecified (principal); R60.0 Localized edema; M79.10 Myalgia, unspecified site; R51.9 Headache, unspecified; R05.9 Cough, unspecified; R50.9 Fever, unspecified; M79.661 Pain in right lower leg; Z20.822 Contact with and (suspected) exposure to COVID-19; Z20.828 Contact with and (suspected) exposure to other viral communicable diseases; Z79.899 Other long term (current) drug therapy
CPT/HCPCS: 0241U; 93971; 99282; 99284

== ENCOUNTER 2023-07-19 12:41 | Emergency (ER) | payer OTHER, SELFPAY ==
--- NOTE | ~2023-07-19 | US_ITS ---
EXAMINATION: US ABDOMEN LIMITED CLINICAL INFORMATION: Elevated liver enzymes. Fever.. COMPARISON: None available. TECHNIQUE: Real-time imaging of the right upper quadrant abdominal viscera. FINDINGS: PANCREAS: Normal. LIVER: Normal. The liver is normal in size. The liver contour is normal. Parenchymal echogenicity is normal. No focal hepatic lesion. There is no intrahepatic biliary duct dilatation seen. GALLBLADDER: Normal. The gallbladder is physiologically distended without evidence of stones, sludge, polyps, wall thickening or pericholecystic fluid. COMMON BILE DUCT: Normal in caliber measuring 0.2 cm in diameter. RIGHT KIDNEY: Small mid pole cyst measuring 4 x 6 mm with question wall calcification versus milk of calcium. No imaging follow-up recommended.No hydronephrosis. No renal calculi or focal parenchymal lesions. The kidney measures 9.5 cm in maximum dimension. FREE FLUID: None. US/US abdomen limited IMPRESSION: Unremarkable exam
--- NOTE | 2023-07-19 13:03 | ED.GENADULT ---
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 She notes she still has headaches, fevers and had some n/v and doesn't feel well. She used someone's nebulizer to clear out her sinuses but that is it. No OTC tylenol or motrin. She has no abdominal pain. No travel. She states she doesn't understand why she feels like this if it's a virus and no one gave her medications. complaint: viral syndrome Onset (ago): day(s) (07/16) Location: head, upper extremity and lower extremity Radiation: non-radiation Severity: moderate Quality: aching and constant Pain Consistency: constant Relieving factors: none Exacerbating factors: movement Associated symptoms: fever/chills, headaches, loss of appetite, malaise, nausea/vomiting and weakness Treatments prior to arrival: none Related Data Home Medications Medication Instructions Recorded Confirmed meloxicam 15 mg tablet 15 mg PO DAILY PRN 10/18/22 07/04/23 Previous Rx's Medication Instructions Recorded trazodone 50 mg tablet 50 mg PO BEDTIME PRN sleep 30 days 07/02/21 #30 tabs loratadine 10 mg tablet 10 mg PO DAILY #30 tabs 10/15/21 sodium chloride 0.65 % nasal spray 2 spray intranasal BID PRN dry 10/15/21 aerosol (Saline Mist) nasal passages #45 mL cyclobenzaprine 5 mg tablet 5 mg PO BEDTIME PRN muscle spasm 02/21/23 #10 tabs thumb spica #1 ea 02/21/23 cefuroxime axetil 500 mg tablet 500 mg PO BID 10 days #20 tabs 07/19/23 cyclobenzaprine 10 mg tablet 10 mg PO TID PRN muscle spasm #20 07/19/23 tabs ibuprofen 600 mg tablet 600 mg PO Q6H PRN pain #30 tabs 07/19/23 ondansetron 4 mg disintegrating 4 mg PO Q8H PRN nausea and 07/19/23 tablet vomiting #20 tabs Allergies Allergy/AdvReac Type Severity Reaction Status Date / Time oxycodone [From PERCOCET] Allergy Unknown NAUSEA & Verified 07/19/23 13:03 VOMITING Review of Systems Review of Systems: Constitutional : pos Fever, pos Chills, pos Fatigue ENT/Mouth : No sore throat, pos Rhinorrhea Eyes: No Eye Pain, No Swelling, No Redness Cardiovascular : No Chest Pain, No SOB, No Dyspnea on Exertion Respiratory : No Cough, No Sputum Gastrointestinal : pos Nausea, pos Vomiting, No Diarrhea, No abdominal Pain Genitourinary : No Dysuria, No Urinary Frequency, No Hematuria, Musculoskeletal : No joint pain, pos Myalgias, No Joint Swelling Skin : No Skin Lesions, No rash Neuro : No Weakness, No Numbness, No Dizziness, positive Headache Psych : No Anxiety/Panic, No Depression Heme/Lymph: No Bruising, No Bleeding,No Lymphadenopathy Endocrine : No Polyuria, No Polydipsia All other systems reviewed and are negative PMFSH Past Medical History Attestation statement: The following information was validated with the patient. Source: old records reviewed Medical History Anemia Carpal tunnel syndrome Migraine Surgical History S/P total abdominal hysterectomy History of section Family History Family History Father Hypertension Mother Thyroid disease Osteoarthritis Social History Social History Housing: Apartment Alcohol intake: never Patient Tobacco Use Status: Never used Tobacco Smoked in Last 30 Days: No e-Cigarette/Vaping Use: Never Used Second Hand Smoke Exposure: No Use of substances other than those prescribed or required for medical reasons: No Advance Directives: No Advance Directives Information Provided: No Patient : No service: No Current occupational status: employed 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 Oriented X3. No acute distress. Eyes: Pupils equal, round and reactive to light. ENT: Pharynx normal. TMs normal, bilateral max and frontal sinus ttp Neck: Normal inspection. Neck supple. no meningeal signs CVS: Normal heart rate and rhythm. Pulses normal. Respiratory: No respiratory distress. Breath sounds normal. Abdomen: Soft and nontender. Skin: Skin warm and dry. Normal skin color. Normal skin turgor. Extremities: No lower extremity edema. No calf ttp Neuro: Oriented X 3. No motor deficit. No sensory deficit. Medications Administered Discontinued Medications Generic Name Dose Route Start Last Admin Trade Name Freq PRN Reason Stop Dose Admin Acetaminophen/Butalbital/Caffeine 1 tab 07/19/23 21:04 07/19/23 21:14 Butalb/Acetamin/Caff 50/325/40 Tablet PO 07/19/23 21:05 1 tab ONCE ONE Administration Cefuroxime Axetil 500 mg 07/19/23 21:04 07/19/23 21:14 Cefuroxime Axetil 500 Mg Tablet PO 07/19/23 21:05 500 mg ONCE ONE Administration Ibuprofen 600 mg 07/19/23 19:05 07/19/23 19:13 Ibuprofen 600 Mg Tablet PO 07/19/23 19:06 600 mg ONCE ONE Administration Ondansetron HCl 4 mg 07/19/23 19:05 07/19/23 19:13 Ondansetron Odt 4 Mg Tab.Rapdis TRANSLINGU 07/19/23 19:06 4 mg ONCE ONE Administration Medical Decision Making Medical Decision Making MDM Narrative: 43 yo female with hx of migraines and chronic pain syndrome here with diffuse pain, fevers, sinus issues, headaches but not taking any medications at home - at this time labs concerning for viral syndrome but does have elevated LFTs will repeat flu, covid send off US of liver, order mono test. supportive medications ordered. she has no meningeal signs. will monitor. Differential Diagnosis Differential Diagnoses: The differential diagnosis associated with the presentation includes mono, sinusitis, covid, flu Admission/Observation Consideration of admission/observation: Escalation of care including admission/observation considered has likely sinusitis and UTI, has fever but no back pain not vomiting here tolerating PO no WBC count fever likely combination LFTs up but US normal can be managed with outpatient oral antibiotics Lab Data MDM Lab Attestation statement: I reviewed the patient's lab results. 07/19/23 15:34 07/19/23 15:34 Labs: Lab Results 07/19/23 07/19/23 07/19/23 Range/Units 15:34 19:29 20:13 WBC 10.7 (4.8-10.8) X10*3/uL RBC 3.98 L (4.20-5.50) X10*6/uL Hgb 11.6 L (12.0-16.0) g/dl Hct 35.1 L (37.0-47.0) % MCV 88.2 (80.0-98.0) fL MCH 29.1 (27.0-33.0) pg MCHC 33.0 (31.0-35.0) g/dl RDW 12.0 (11.0-16.0) % Plt Count 207 (160-400) X10*3/uL MPV 10.2 (9.4-12.3) fL Immature Gran % (Auto) 0.3 (0.0-0.4) % Neut % (Auto) 86.6 H (45-73) % Lymph % (Auto) 6.8 L (20-40) % Ball[place] % (Auto) 6.0 (2-11) % Eos % (Auto) 0.0 (0-4) % Baso % (Auto) 0.3 (0-2) % Lymph # (Auto) 0.7 L (1.2-4.9) X10*3/uL [place] # (Auto) 0.6 (0.1-1.2) X10*3/uL Eos # (Auto) 0.0 (0.0-0.4) X10*3/uL Baso # (Auto) 0.0 (0.0-0.2) X10*3/uL Abs Immat Gran (auto) 0.03 (0.00-0.03) X10*3/uL Absolute Neuts (auto) 9.3 H (2.0-8.3) x10*3/uL Absolute Nucleated RBC 0.000 (0.0-0.012) X10*3/uL Nucleated RBC % (auto) 0.0 (0.0-0.2) /100WBC Sodium 135 (135-145) mmol/L Potassium 3.6 (3.3-5.1) mmol/L Chloride 105 (96-108) mmol/L Carbon Dioxide 23 (22-29) mmol/L Anion Gap 11 L (12-20) BUN 11 (9-16) mg/dL Creatinine 0.84 (0.5-1.4) mg/dL Estim Creat Clear Calc 77.7 Estimated GFR > 60 Random Glucose 112 (60-115) mg/dL Calcium 9.5 (8.4-10.2) mg/dL Total Bilirubin 0.9 (0.0-1.0) mg/dL Direct Bilirubin 0.5 (0.0-0.5) mg/dL AST 107 H (5-31) U/L ALT 123 H (0-31) U/L Alkaline Phosphatase 186 H (39-117) U/L Total Creatine Kinase 83 (26-140) U/L Total Protein 8.3 H (6.5-8.0) g/dL Albumin 4.1 (3.5-5.0) g/dL Lipase 19 (8-78) U/L Urine Color Dark Yellow Urine Appearance Turbid Urine pH 5.5 (5.0-9.0) Ur Specific [place] 1.015 (1.005-1.025) Urine Protein 100 (2+) H (Neg-Trace) mg/dL Urine Glucose (UA) Negative (Negative) mg/dL Urine Ketones Negative (Negative) mg/dL Urine Blood Large (3+) H (Negative) Urine Nitrite Negative (Negative) Ur Leukocyte Esterase Large (3+) H (Negative) Urine RBC >20 H (0-2) /HPF Urine WBC >50 H (0-5) /HPF Ur Squamous Epith Cells 3-5 (0-2) /HPF Urine Bacteria 4+ (None Seen) Hyaline Casts 0-2 (0-2) /LPF Urine Yeast Present Urine Test NEGATIVE (NEGATIVE) COVID-19 (AWA) Negative (Negative) COVID-19 Clin Com See Note Monoscreen Negative (Negative) Influenza Type A (GEETHA) Negative (Negative) Influenza Type B (GEETHA) Negative (Negative) Influenza A & B Note See Note Independent Interpretation I performed an independent interpretation of an: Ultrasound Radiology Impression Discussion of test interpretation with radiology: I have reviewed the radiologist's reading. Independent Historian Clinical information obtained from an independent historian. History obtained from or confirmed by: Spouse External Record Review External record reviewed: Inpatient record Prescription Management I considered prescription management with: Antibiotic Discharge Plan Discharge Clinical Impression: Acute UTI, Acute viral syndrome, Elevated liver enzymes Sinusitis Qualifiers: Sinusitis location: frontal Chronicity: acute Recurrence: non-recurrent Qualified Code(s): J01.10 - Acute frontal sinusitis, unspecified Fever Qualifiers: Fever type: unspecified Qualified Code(s): R50.9 - Fever, unspecified Patient Disposition: Home, Self-Care Instructions: Urinary Tract Infection in Women (ED), Sinusitis (ED), Fever in Adults (ED), Viral Syndrome (ED) Additional Instructions: take motrin for fevers. finish all antibiotics. return for worsening pain, inability to eat or drink, confusion or any other concerns. tome motrin para la fiebre. terminar todos los antibi?ticos. Regrese si el dolor empeora, incapacidad para comer o beber, confusi?n o cualquier otra inquietud. repeat liver function tests with your doctor in 3 days. can take motrin for fever avoid tylenol. Repita las pruebas de funci?n hep?ida con roman m?dico en 3 d?as. Puede otto motrin para la fiebre y evitar Tylenol. Prescriptions: New cyclobenzaprine 10 mg tablet 10 mg PO TID PRN (Reason: muscle spasm) Qty: 20 0RF ibuprofen 600 mg tablet 600 mg PO Q6H PRN (Reason: pain) Qty: 30 0RF cefuroxime axetil 500 mg tablet 500 mg PO BID 10 Days Qty: 20 0RF ondansetron 4 mg tablet,disintegrating 4 mg PO Q8H PRN (Reason: nausea and vomiting) Qty: 20 0RF No Action trazodone 50 mg tablet 50 mg PO BEDTIME PRN (Reason: sleep) 30 Days Qty: 30 0RF loratadine 10 mg tablet 10 mg PO DAILY Qty: 30 0RF Saline Mist 0.65 % aerosol,spray 2 spray intranasal BID PRN (Reason: dry nasal passages) Qty: 45 0RF meloxicam 15 mg tablet 15 mg PO DAILY PRN (DME) thumb spica See Rx Instructions .Route .MEDSUPPLY Qty: 1 0RF Rx Instructions: wear nightly and as much as possible throughout the day cyclobenzaprine 5 mg tablet 5 mg PO BEDTIME PRN (Reason: muscle spasm) Qty: 10 1RF Stand Alone Forms: Work/School Release Print Language: Estonian
[2023-07-19 13:04] VITALS: BP 104/56; PULSE 98; RESP 18; TEMP 37.2; O2SAT 97; BMI 31.3
[2023-07-19 15:40] LABS: MANUAL DIFF FLAG NO
[2023-07-19 15:43] LABS: Basophils Percent Auto 0.3 % (0-2); Hematocrit 35.1 % (37.0-47.0); Hemoglobin 11.6 g/dl (12.0-16.0); Imm Gran Abs Auto 0.03 X10*3/uL (0.00-0.03); Imm Gran Pct Auto 0.3 % (0.0-0.4); Lymphocytes Absolute Auto 0.7 X10*3/uL (1.2-4.9); Lymphocytes Percent Auto 6.8 % (20-40); Mean Corpuscular Hemoglobin 29.1 pg (27.0-33.0); Mean Corpuscular Volume 88.2 fL (80.0-98.0); Mean Platelet Volume 10.2 fL (9.4-12.3); Monocytes Absolute Auto 0.6 X10*3/uL (0.1-1.2); Neutrophils Absolute Auto 9.3 x10*3/uL (2.0-8.3); Neutrophils Percent Auto 86.6 % (45-73); Platelet Count 207 X10*3/uL (160-400); Red Blood Count 3.98 X10*6/uL (4.20-5.50); White Blood Count 10.7 X10*3/uL (4.8-10.8)
[2023-07-19 16:00] LABS: Alanine Aminotransferase 123 U/L (0-31); Albumin Level 4.1 g/dL (3.5-5.0); Alkaline Phosphatase 186 U/L (39-117); Anion Gap 11 (12-20); Aspartate Amino Transferase 107 U/L (5-31); Bilirubin Direct 0.5 mg/dL (0.0-0.5); Bilirubin Total 0.9 mg/dL (0.0-1.0); Blood Urea Nitrogen 11 mg/dL (9-16); Calcium 9.5 mg/dL (8.4-10.2); Carbon Dioxide 23 mmol/L (22-29); Chloride 105 mmol/L (96-108); Creatinine Clr Calc Pharmacy 77.7; Estimated Glomerular Filt Rate > 60; Glucose Random 112 mg/dL (60-115); Lipase 19 U/L (8-78); Potassium 3.6 mmol/L (3.3-5.1); Sodium 135 mmol/L (135-145); Total Protein 8.3 g/dL (6.5-8.0)
[2023-07-19 16:06] LABS: COVID-19 Test Negative (Negative); IDNOW Serial# 08D9AD1C; IDNOW Serial# 152EDE1D; Influenza A Negative (Negative); Influenza B2 Negative (Negative)
[2023-07-19 19:04] VITALS: BP 112/65; PULSE 88; RESP 18; TEMP 38.4; O2SAT 100
[2023-07-19] MEDS: Ibuprofen 600 MG TABLET PO (19:13)
[2023-07-19] MEDS: Ondansetron ODT 4 MG TAB.RAPDIS TRANSLINGU (19:13)
[2023-07-19 19:59] LABS: Monotest Negative (Negative)
[2023-07-19 20:39] LABS: UPreg QC Valid YES; Urine Pregnancy NEGATIVE (NEGATIVE)
[2023-07-19 20:47] LABS: Appearance Urine Turbid; Color Urine Dark Yellow; Glucose Urine UA Negative (Negative); Leukocyte Esterase Urine Large (3+) (Negative); Nitrite Urine Negative (Negative); PH 5.5 (5.0-9.0); Specific Gravity - Urine 1.015 (1.005-1.025); UMIC TRIGGER UACC YES; Urine Blood Large (3+) (Negative); Urine Ketones Negative (Negative); Urine Protein 100 (2+) mg/dL (Neg-Trace)
[2023-07-19 20:48] LABS: Bacteria Urine 4+ (None Seen); Hyaline Casts Urine 0-2 /LPF (0-2); RBC Urine >20 /HPF (0-2); UACC Culture Trigger YES; WBC Urine >50 /HPF (0-5)
[2023-07-19 20:56] VITALS: BP 108/53; PULSE 101; RESP 16; TEMP 38.8; O2SAT 97
[2023-07-19] MEDS: Butalb/Acetamin/Caff 50/325/40 TABLET 1 TAB PO (21:14)
[2023-07-19] MEDS: cefuroxime axetiL 500 MG TABLET PO (21:14)
[2023-07-19 21:58] VITALS: TEMP 37.2
--- NOTE | 2023-07-19 21:58 | PC.NURSE ---
Pt reports effectiveness to meds given per MAR.
== END 2023-07-19 21:59 | disposition home or self-care (01) ==
PROVIDERS: Physician Assistant Medical; Emergency Provider Emergency Medicine; PCP Internal Medicine
DX: B34.9 Viral infection, unspecified (principal); J01.10 Acute frontal sinusitis, unspecified; N39.0 Urinary tract infection, site not specified; R50.9 Fever, unspecified; R79.89 Other specified abnormal findings of blood chemistry; Z11.52 Encounter for screening for COVID-19; G89.4 Chronic pain syndrome; D64.9 Anemia, unspecified
CPT/HCPCS: 76705; 80048; 80076; 81001; 81025; 82550; 83690; 85025; 86308; 87086; 87088; 87186; 87502; 87635; 99284

== ENCOUNTER 2023-07-25 08:42 | Outpatient (AMB) | payer OTHER, SELFPAY ==
--- NOTE | 2023-07-25 08:49 | A.OFFPC_ITS ---
Vital Signs 07/25/23 08:50 Height 5 ft Weight 159 lb BMI 31.0 BP 100/70 Blood Pressure Location Lt brachial Position Sitting Intake Visit Reasons: PE Intake Note: Patient here for a follow up Physical Exam, c/o frequent headaches Software Support Representative Required: No Accompanied by: Self / Same As Patient Allergies oxycodone [From PERCOCET] Allergy (Unknown, Verified 07/25/23 09:17) NAUSEA & VOMITING Medication List - Last Reconciled 07/25/23 by Cristina Giraldo MD cefuroxime axetil 500 mg PO BID 10 days cyclobenzaprine 10 mg PO TID PRN ibuprofen 600 mg PO Q6H PRN loratadine 10 mg PO DAILY meloxicam 15 mg PO DAILY PRN ondansetron 4 mg PO Q8H PRN sodium chloride 0.65% (Saline Mist) 2 sprays intranasal BID PRN [thumb spica wear nightly and as much as possible throughout the day] trazodone 50 mg PO BEDTIME PRN 30 days Tobacco use date assessed: 07/25/23 Dental Screening Dental Screen Date: 07/25/23 Did you have a dental visit in the last 12 months?: Yes Did you have a dental problem in the last 6 months where you did not have access to dental care?: No Was dental information given to patient?: Patient has dentist HPI HPI Comments History of Present Illness Details This is a 43-year-old female with mild major depression that comes for her physical exam. She rarely used trazodone. She complains of new daily persistent headaches that involves frontal area bilateral associated with blurry vision and dizziness and improves by being laying down in a dark quiet room. No neurological deficit associated with it. I will give sumatriptan as needed for headaches and start her on amitriptyline for her depression and for migraine prophylaxis. Last mammogram was July 2022 and was normal. She had hysterectomy due to cervical cancer and this is follow by [facility]. No chest pain or shortness of breath. Went to ER due to UTI and transaminitis. Ultrasound of the abdomen was negative and abdominal exam today was benign. Denies jaundice. Liver enzymes and urinalysis will be repeated. Also denies recent travel. Complains of diffuse joint pain that has been present for a while. No rash. 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 1. Little interest or pleasure in doing things: several days 2. Feeling down, depressed, or hopeless: several days 3. Trouble falling or staying asleep, or sleeping too much: nearly every day 4. Feeling tired or having little energy: nearly every day 5. Poor appetite or overeating: several days 6. Feeling bad about yourself - or that you are a failure or have let yourself or your family down: several days 7. Trouble concentrating on things, such as reading the newspaper or watching television: several days 8. Moving or speaking so slowly that other people could have noticed. Or the opposite - being so fidgety or restless that you have been moving around a lot more than usual: several days 9. Thoughts that you would be better off or of hurting yourself in some way: not at all Total score: 12 Depression Screening Interpretation: Positive Depression Screening Follow-up: Existing condition, New Medication prescribed and Community Mental Health Worker F/U Depression Screening Done: Yes 18940 - PHQ-9 Billing: Yes Source: Developed by Drs. Rj Cano, Yanelis Blancas, Gagan Bhakta and colleagues, with an educational lizandro from [employer]. Thrive Questionnaire Date Thrive assessed: 07/25/23 I am a: Patient What is your living situation today?: I have a steady place to live Within the past 12 months, did the food you bought not last and you didn't have the money to get more?: Never true Within the past 12 months, did you worry whether your food would run out before you got money to buy more?: Never true Do you have trouble paying for medicines?: No Do you have trouble getting transportation to medical appointments?: No Do you have trouble paying your heating and electricity bill?: No Do you have trouble taking care of your child, family member or friend?: No Do you have trouble with day-to-day activities such as bathing, preparing meals, shopping, managing finances, etc.?: No Are you currently unemployed and looking for a job?: No Are you interested in more education?: No Please select the resources that you would like help with: None Currently or been in a relationship where the following occur: no concerns reported THRIVE Score: 0 AUDIT C Alcohol Use Questionnaire (AUDIT-C) 1. How often do you have a drink containing alcohol?: Never Total Score: 0 Score Reviewed/Action Taken: No SADI-7 AMB Questionnaire SADI-7 Date SADI - 7 assessed: 07/25/23 Feeling nervous, anxious, or on edge: 1 = Several days Not being able to stop or control worryin = Not at all Worrying too much about different things: 1 = Several days Trouble relaxin = Several days Being so restless that it is hard to sit still: 1 = Several days Becoming easily annoyed or irritable: 1 = Several days Feeling afraid as if something awful might happen: 0 = Not at all Total SADI-7 score (0-4 normal; 5-9 mild; 10-14 moderate; 15-21 severe): 5 Source: Developed by Drs. Rj Cano, Yanelis Blancas, Gagan Bhakta and colleagues, with an educational lizandro from [employer]. SADI-7 Assessment Billing SADI-7 Assessment Tool: SADI-7 Assessment 38290 Review of Systems Const All systems reviewed & are unremarkable except as noted in HPI and below Reports headache(s) Eyes Reports no additional complaints, Denies change in vision and Denies other visual disturbances ENT Reports headache(s) Card Denies chest pain at rest, Denies chest pain with activity, Denies edema, Denies irregular heart rhythm, Denies claudication, Denies dyspnea, Denies dyspnea on exertion, Denies orthopnea, Denies paroxysmal nocturnal dyspnea and Denies slow heart rate Resp Denies cough, Denies dyspnea and Denies dyspnea on exertion GI Denies abdominal pain, Denies change in bowel habits, Denies excessive flatus, Denies nausea and Denies vomiting Denies urinary incontinence, Denies urinary hesitancy and Denies urinary urgency Musc Denies abnormal gait, Denies atrophy, Denies deformity, Reports arthralgias and Denies limited range of motion Skin/Breast Denies bleeding lesions, Denies changing lesions and Denies rash Neuro Denies abnormal gait, Denies behavioral changes, Denies confusion, Reports headache(s) and Denies lack of coordination Psych Reports abnormal sleep pattern, Reports anxiety, Denies behavioral changes, Denies confusion and Reports depression Physical exam (Primary Care) Vital Signs: Last Vital Signs BP 100/70 07/25/23 08:50 BMI result Body Mass Index 31.0 Tobacco/Smoking Status: Tobacco use Status Tobacco use date assessed 07/25/23 07/25/23 08:59 Patient Tobacco Use Status Never used Tobacco 07/25/23 08:59 Tobacco use type 07/03/23 13:26 e-Cigarette/Vaping Use Never Used 07/25/23 08:59 PHQ-9: PHQ-9 Score PHQ-9: Total score 12 07/25/23 08:59 Depression Screening Interpretation: Positive Depression Screening Follow-up: Existing condition, New Medication prescribed and Community Mental Health Worker F/U Thrive Assessment: Date of Thrive Assessment Date Thrive assessed 07/25/23 07/25/23 08:59 Currently or been in a relationship where the following occur: no concerns reported Const General: No confusion Orientation/consciousness: patient oriented x3 and No confusion HENMA Head: Yes normal to inspection, Yes normocephalic and Yes atraumatic Ears: external ears normal Eyes General: appearance normal, both eyes and all related structures Eyelids: Yes eyelids normal Conjunctivae: conjunctivae normal Neck Neck: Yes normal visual inspection and Yes supple Resp Effort & Inspection: normal respiratory effort Auscultation: clear to auscultation bilaterally Cardio Jugular venous distension: no JVD Rate: regular rate Rhythm: regular rhythm Heart sounds: S1 normal heart sound present and S2 normal heart sound present GI Inspection: Yes normal to inspection Palpation (GI): Soft to palpation and nontender Auscultation: normal bowel sounds Skin General skin exam: no rashes or lesions noted Neuro General: patient oriented x3, no focal motor deficits and No confusion Extrem General: Yes full ROM Psych Appearance: grossly normal Assessment and Plan Assessment & Plan (1) Physical exam: Code(s): Z00.00 - Encounter for general adult medical examination without abnormal findings Plan: Repeat in a year. (2) Mild major depression: Code(s): F32.0 - Major depressive disorder, single episode, mild Plan: Discontinue trazodone. Start amitriptyline. Continue therapy with counselor. Orders: Orders MM screening mammo BI Today Z12.31 - Encounter for screening mammogram for malignant neoplasm of breast MR head/brain wo con Today G44.52 - New daily persistent headache (NDPH) XR sinus herrmann view Today J32.9 - Chronic sinusitis, unspecified Complete Blood Count Auto Diff Today D64.9 - Anemia, unspecified CRP High Sensitivity Today M25.50 - Pain in unspecified joint Cyclic Citrullinated Peptide Today M25.50 - Pain in unspecified joint Lyme IgG/IgM w/reflex to WB Today M25.50 - Pain in unspecified joint Rheumatoid Factor Today M25.50 - Pain in unspecified joint Anti DNA DS Antibody Today M25.50 - Pain in unspecified joint UA CC w/rflx Micro + Cult Today R30.0 - Dysuria Liver Panel Today R74.01 - Elevation of levels of liver transaminase levels Hepatitis A,B,C Profile Today R74.01 - Elevation of levels of liver transaminase levels IRON PROFILE Today D64.9 - Anemia, unspecified Erythrocyte Sedimentation Rate Today M25.50 - Pain in unspecified joint CRISTINA Reflex Titer and Pattern Today M25.50 - Pain in unspecified joint Vitamin D 25-OH Total Today E55.9 - Vitamin D deficiency, unspecified Medications: New sumatriptan succinate do not exceed 8 doses per 24 hrs 25 mg PO Q2-4H 30 days PRN 9 tabs 3RF migraine headache amitriptyline 25 mg PO BEDTIME 90 days 90 tabs 1RF F32.0 - Major depressive disorder, single episode, mild, G43.909 - Migraine, unspecified, not intractable, without status migrainosus Discontinued trazodone Discontinued Reason: Patient Completed Course 50 mg PO BEDTIME 30 days PRN 30 tabs 0RF sleep Coding Level of Care Code Est Pt Prev Care 40-64y(97191) Diagnoses Physical exam Z00.00 Mild major depression F32.0 Additional Codes SADI-7 Assessment Billing - SADI-7 Assessment Tool: SADI-7 Assessment 52943 ([id number]) Time Spent (min) 35
[2023-07-25 08:50] VITALS: BP 100/70; BMI 31.0
== END 2023-07-25 09:29 | disposition home or self-care (01) ==
PROVIDERS: Visit Provider Internal Medicine
DX: Z00.00 Encounter for general adult medical examination without abnormal findings (principal); F32.0 Major depressive disorder, single episode, mild
CPT/HCPCS: 96127; 99396

== ENCOUNTER 2023-07-27 09:50 | Outpatient (REF) | payer OTHER, SELFPAY ==
--- NOTE | ~2023-07-27 | MM_ITS ---
EXAMINATION: MM SCREENING DIGITAL BREAST TOMOSYNTHESIS, BILATERAL CLINICAL INFORMATION: Screening. Asymptomatic. COMPARISON: Mammography: This study is compared with prior exams dating back to 2022. TECHNIQUE: Digital breast tomosynthesis is performed in both the craniocaudal and mediolateral oblique views along with computer-aided detection (CAD). Synthesized 2D images are generated from the tomosynthesis. FINDINGS: The breasts are heterogeneously dense, which may obscure small masses (ACR BI-RADS breast composition Category c). There are no significant masses, abnormal calcifications, or other abnormalities. MM/MM tomosynthesis screening BI IMPRESSION: No mammographic evidence of malignancy. ASSESSMENT: BI-RADS BI-RADS 1 - Negative RECOMMENDATION: Routine annual mammography screening. 1 year F/U This examination should not preclude the clinical evaluation of a suspicious palpable abnormality. This patient's information was entered into a reminder system with a target due date for their next mammogram.
== END 2023-07-27 09:51 | disposition home or self-care (01) ==
LOC: HO.MAMMO 09:50
PROVIDERS: PCP Internal Medicine; Visit Provider Internal Medicine
DX: Z12.31 Encounter for screening mammogram for malignant neoplasm of breast (principal)
CPT/HCPCS: 77063; 77067

== ENCOUNTER → 2023-07-27 10:00 | Outpatient (BNV) | payer OTHER, SELFPAY | PROVIDERS: PCP Internal Medicine; Visit Provider Radiology Diagnostic Radiology | DX: Z12.31 Encounter for screening mammogram for malignant neoplasm of breast (principal) | CPT/HCPCS: 77063; 77067 ==

== ENCOUNTER 2023-08-03 08:35 | Outpatient (REF) | payer OTHER, SELFPAY ==
--- NOTE | ~2023-08-03 | XR_ITS ---
EXAMINATION: XR SINUSES CLINICAL INFORMATION: Chronic sinusitis. COMPARISON: None available. 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 Paranasal sinuses otherwise appear clear without air-fluid levels. No fractures are identified. No radiodense foreign bodies. XR/XR sinus min 3V IMPRESSION: Unremarkable examination.
[2023-08-03 09:17] LABS: Basophils Percent Auto 0.5 % (0-2); Eosinophils Absolute Auto 0.1 X10*3/uL (0.0-0.4); Eosinophils Percent Auto 3.8 % (0-4); Hematocrit 36.4 % (37.0-47.0); Hemoglobin 11.3 g/dl (12.0-16.0); Lymphocytes Absolute Auto 1.1 X10*3/uL (1.2-4.9); Lymphocytes Percent Auto 54.1 % (20-40); MANUAL DIFF FLAG SCAN; Mean Corpuscular Hemoglobin 28.9 pg (27.0-33.0); Mean Corpuscular Volume 93.1 fL (80.0-98.0); Monocytes Absolute Auto 0.3 X10*3/uL (0.1-1.2); Monocytes Percent Auto 14.8 % (2-11); Neutrophils Absolute Auto 0.6 x10*3/uL (2.0-8.3); Neutrophils Percent Auto 26.8 % (45-73); Platelet Count 274 X10*3/uL (160-400); Red Blood Count 3.91 X10*6/uL (4.20-5.50); Red Cell Distribution Width 12.6 % (11.0-16.0); SCAN SMEAR FLAG 1
[2023-08-03 09:20] LABS: White Blood Count 2.1 X10*3/uL (4.8-10.8)
[2023-08-03 09:37] LABS: Rheumatoid Factor < 13.0 IU/mL (<15.0)
[2023-08-03 09:55] LABS: Erythrocyte Sedimentation Rate 67 MM/HR (0-20)
[2023-08-03 09:56] LABS: Appearance Urine Cloudy; Color Urine Dark Yellow; Glucose Urine UA Negative (Negative); Leukocyte Esterase Urine Negative (Negative); Nitrite Urine Positive (Negative); PH 5.5 (5.0-9.0); Specific Gravity - Urine 1.025 (1.005-1.025); UMIC TRIGGER UACC YES; Urine Blood Large (3+) (Negative); Urine Ketones Trace mg/dL (Negative); Urine Protein Trace mg/dL (Neg-Trace)
[2023-08-03 09:57] LABS: Alanine Aminotransferase 33 U/L (0-31); Alkaline Phosphatase 144 U/L (39-117); Aspartate Amino Transferase 34 U/L (5-31); Bilirubin Direct 0.2 mg/dL (0.0-0.5); Bilirubin Total 0.5 mg/dL (0.0-1.0); Iron 43 mcg/dL (30-160); Percent Iron Saturation 17 % (15-50); Total Iron Binding Capacity 250 mcg/dL (228-428); Unsaturated Iron Binding 207 ug/dL
[2023-08-03 10:12] LABS: Vitamin D 25-OH Total 18.8 ng/mL (>30)
[2023-08-03 10:14] LABS: SLIDE REVIEW VERIFIED
[2023-08-03 10:20] LABS: Bacteria Urine 4+ (None Seen); Calcium Oxalate Crystals Urine Present; RBC Urine >20 /HPF (0-2); Squamous Epithelial Cell Urine >20 /HPF (0-2); UACC Culture Trigger YES
[2023-08-03 11:29] LABS: HBS Num1 0.27 mIU/mL (0-7.99); HBc Num1 0.15 S/CO (0.00-0.79); HBsAGNum1 0.39 S/CO (0.00-0.99); Hepatitis A Antibody IgM 0.22 Index (0-0.79); Hepatitis B Core Antibody Nonreactive (Nonreactive); Hepatitis B Surface Antigen Negative (Negative); ~HepC Num1 0.16 S/CO (0.00-0.79); ~Hepatitis A Antibody IgM Nonreactive (Nonreactive); ~Hepatitis B Surface Antibody NONREACTIVE (Nonreactive); ~Hepatitis C Antibody Nonreactive (Nonreactive)
[2023-08-05 03:13] LABS: Lyme Abs Screen <0.90 index
[2023-08-07 11:33] LABS: CRP High Sensitivity >10.0 mg/L
[2023-08-07 15:08] LABS: Cyclic Citrullinated Peptide <16 UNITS
[2023-08-07 20:03] LABS: Anti DNA DS Antibody 1 IU/mL
[2023-08-10 15:04] LABS: Anti Nuclear Antibody Screen NEGATIVE (NEGATIVE)
== END 2023-08-03 08:36 | disposition home or self-care (01) ==
LOC: HO.LAB 08:35
PROVIDERS: PCP Internal Medicine; Visit Provider Internal Medicine
DX: M25.50 Pain in unspecified joint (principal); D64.9 Anemia, unspecified; R30.0 Dysuria; J32.9 Chronic sinusitis, unspecified; E55.9 Vitamin D deficiency, unspecified; R74.01 Elevation of levels of liver transaminase levels
CPT/HCPCS: 36415; 70220; 80076; 81001; 82306; 83540; 85025; 85652; 86038; 86141; 86200; 86225; 86431; 86617; 86618; 86704; 86706; 86709; 86803; 87086; 87088; 87186; 87340

== ENCOUNTER 2023-08-08 20:02 | Outpatient (REF) | payer OTHER, SELFPAY ==
--- NOTE | ~2023-08-08 | MR_ITS ---
EXAMINATION: MR BRAIN WITHOUT CONTRAST CLINICAL INFORMATION: Daily persistent headaches. COMPARISON: None. TECHNIQUE: Multiplanar, multisequence imaging of the brain was performed without contrast. FINDINGS: No diffusion abnormalities are identified to suggest an acute or subacute infarct. The ventricles are normal in size. No mass effect or midline shift is seen. No brain parenchymal signal abnormality is noted. No extra-axial fluid collections are seen. The brainstem and cerebellum are normal. The gradient refocused acquisition is normal. The craniovertebral junction, marrow signal, and midline structures are normal. The major intracranial flow voids at the level of the moapa of [place] are preserved. The dural venous sinus flow voids are maintained. The mastoid air cells and paranasal sinuses are well aerated. MR/MR head/brain wo con IMPRESSION: Normal MRI of the brain. No acute process.
== END 2023-08-08 20:03 | disposition home or self-care (01) ==
LOC: HO.MRI 20:02
PROVIDERS: PCP Internal Medicine; Visit Provider Internal Medicine
DX: G44.52 New daily persistent headache (NDPH) (principal)
CPT/HCPCS: 70551

== ENCOUNTER → 2023-10-31 14:33 | Outpatient (RCR) | payer OTHER, SELFPAY | END | disposition home or self-care (01) | LOC: HO.OT 07-29 13:38 | PROVIDERS: PCP Internal Medicine; Visit Provider Nurse Practitioner Acute Care | DX: M79.641 Pain in right hand (principal); M79.642 Pain in left hand | CPT/HCPCS: 29125; 29130; 97033; 97110; 97166; 97760 ==

== ENCOUNTER 2024-01-10 19:29 | Emergency (ER) | payer OTHER, SELFPAY ==
--- NOTE | ~2024-01-10 | XR_ITS ---
EXAMINATION: XR CHEST CLINICAL INFORMATION: Cough COMPARISON: None available. TECHNIQUE: 2 views of the chest were obtained. FINDINGS: No significant abnormality is noted involving the heart, lungs, mediastinum, bony thorax or soft tissues. XR/XR chest 2V IMPRESSION: Unremarkable examination.
[2024-01-10 19:34] VITALS: BP 108/61; PULSE 82; RESP 16; TEMP 36.6; O2SAT 96; BMI 30.5
--- NOTE | 2024-01-10 19:34 | ED_ITS ---
HPI - URI/Sore Throat General Chief Complaint: Upper Respiratory Symptoms Stated Complaint: vomting, sore throat, congestion Time Seen by Provider: 01/10/24 19:56 Source: patient Mode of arrival: ambulatory Limitations: language barrier (Colombian-speaking appraisal technician utilized) History of Present Illness HPI Narrative: Patient is a 43-year-old female who presents emergency department for evaluation of 1 week with a productive cough and green phlegm, occasional posttussive emesis with phlegm, nasal congestion, and noted to have symptoms worse at night. She denies any fevers or chills. Denies known sick contacts. Denies associated nausea vomiting abdominal pain genitourinary symptoms. Denies any underlying pulmonary history. Related Data Home Medications ?Medication ?Instructions ?Recorded ?Confirmed meloxicam 15 mg tablet 15 mg PO DAILY PRN 10/18/22 07/25/23 Previous Rx's ?Medication ?Instructions ?Recorded loratadine 10 mg tablet 10 mg PO DAILY #30 tabs 10/15/21 sodium chloride 0.65 % nasal spray 2 spray intranasal BID PRN dry 10/15/21 aerosol (Saline Mist) nasal passages #45 mL thumb spica #1 ea 02/21/23 cefuroxime axetil 500 mg tablet 500 mg PO BID 10 days #20 tabs 07/19/23 cyclobenzaprine 10 mg tablet 10 mg PO TID PRN muscle spasm #20 07/19/23 tabs ibuprofen 600 mg tablet 600 mg PO Q6H PRN pain #30 tabs 07/19/23 ondansetron 4 mg disintegrating 4 mg PO Q8H PRN nausea and 07/19/23 tablet vomiting #20 tabs amitriptyline 25 mg tablet 25 mg PO BEDTIME 90 days #90 tabs 07/25/23 sumatriptan succinate 25 mg tablet 25 mg PO Q2-4H PRN migraine 07/25/23 headache 30 days #9 tabs azithromycin 250 mg tablet See Rx Instructions PO .COMPLEX #6 01/10/24 tabs benzonatate 100 mg capsule 100 mg PO TID PRN cough #14 caps 01/10/24 prednisone 20 mg tablet 40 mg (2 x 20 mg) PO DAILY #6 tabs 01/10/24 Allergies Allergy/AdvReac Type Severity Reaction Status Date / Time oxycodone [From PERCOCET] Allergy Unknown NAUSEA & Verified 01/10/24 19:35 VOMITING Review of Systems Review of Systems: Yes all other systems are reviewed and are negative [facility] Past Medical History Attestation statement: The following information was validated with the patient. 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 No acute distress.?Normal affect. Eyes: Pupils equal, round and reactive to light.? ENT: Pharynx normal.?? Neck: Normal inspection.? Neck supple.?? CVS: Heart sounds normal. Normal heart rate and rhythm.? Pulses normal.?? Respiratory: No respiratory distress.? Lung sounds clear to auscultation bilaterally?? Abdomen: Soft and non-tender. Normoactive bowel sounds. Skin: Skin warm and dry.? Normal skin color.? Extremities: No lower extremity edema.? No calf ttp? Neuro: Moves all extremities spontaneously. Sensation intact bilaterally. CN II- XII intact. No focal neuro deficits. Ambulates with normal steady gait. Course Course Course Narrative: This is a Rapid Medical Exam performed in triage by Norma Guevara PA-C. Full HPI, ROS and PE to be performed by primary ED provider. 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 +post-tussive emesis & congestion . de nies fever, abdominal pain PE: talking in complete sentences, nontoxic appearing Plan: CXR, viral testing Medical Decision Making Medical Decision Making MDM Narrative: Patient is a 43-year-old female, presenting for evaluation of upper respiratory symptoms. COVID-19 and influenza testing is negative. At this time history and physical exam not consistent with ACS/PE/pneumonia. CXR without consolidation or infiltrates. Well-appearing, nontoxic, afebrile, no tachycardia or tachypnea/hypoxia. Speaking clear full sentences, ambulatory with steady gait. Discussed conservative treatment including rest, hydration, Tylenol/ibuprofen as needed for fever and body aches, saline nasal spray, humidifier, [id number] cold medication. I have sent prescription for prednisone in addition to azithromycin and benzonatate to pharmacy for bronchitis. Advised to follow-up with primary care provider as needed, discussed reasons to return back to the emergency department. All questions were answered. Patient discharged home in stable condition. Provided with a return to work/school note. Differential Diagnosis Differential Diagnoses: The differential diagnosis associated with the presentation includes ( See narrative above) Admission/Observation Consideration of admission/observation: Escalation of care including admission/observation considered ( see narrative above) Lab Data [facility] [place] Lab Attestation statement: I reviewed the patient's lab results. ( see narrative above) Labs: Lab Results 01/10/24 Range/Units 19:45 Influenza Type A (PCR) NEGATIVE (Negative) Influenza Type B (PCR) NEGATIVE (Negative) RSV RNA Qual (PCR) NEGATIVE (Negative) SARS-CoV-2 RNA (RT-PCR) NEGATIVE (Negative) Independent Interpretation I performed an independent interpretation of an: Plain X-Ray (See narrative above) Radiology Impression Discussion of test interpretation with radiology: I have reviewed the radiologist's reading. Radiologist Impression: XR/XR chest 2V IMPRESSION: Unremarkable examination. Prescription Management I considered prescription management with: Pain Medication ( acetaminophen/ibuprofen) and Antibiotic Discharge Plan Discharge Clinical Impression: Bronchitis Patient Disposition: Home, Self-Care Instructions: Acute Bronchitis (ED) Additional Instructions: Your chest x-ray today does not show evidence of pneumonia. Your testing for COVID-19 and flu were negative. Your symptoms at this time are consistent with bronchitis. Please take your prescriptions as prescribed. Do not stop taking them early even if your symptoms improve. Follow-up with your primary care doctor. You may return to emergency department any new or worsening symptoms or concerns. Prescriptions: New prednisone 20 mg tablet 40 mg PO DAILY Qty: 6 0RF azithromycin 250 mg tablet See Rx Instructions .ROUTE .COMPLEX Qty: 6 0RF Rx Instructions: For 250 mg dose pack: take 500 mg today (day 1), then 250 mg for 4 days (days 2-5) benzonatate 100 mg capsule 100 mg PO TID PRN (Reason: cough) Qty: 14 0RF No Action cyclobenzaprine 10 mg tablet 10 mg PO TID PRN (Reason: muscle spasm) Qty: 20 0RF ibuprofen 600 mg tablet 600 mg PO Q6H PRN (Reason: pain) Qty: 30 0RF cefuroxime axetil 500 mg tablet 500 mg PO BID 10 Days Qty: 20 0RF ondansetron 4 mg tablet,disintegrating 4 mg PO Q8H PRN (Reason: nausea and vomiting) Qty: 20 0RF amitriptyline 25 mg tablet 25 mg PO BEDTIME 90 Days Qty: 90 1RF sumatriptan succinate 25 mg tablet 25 mg PO Q2-4H PRN (Reason: migraine headache) 30 Days Qty: 9 3RF Rx Instructions: do not exceed 8 doses per 24 hrs loratadine 10 mg tablet 10 mg PO DAILY Qty: 30 0RF Saline Mist 0.65 % aerosol,spray 2 spray intranasal BID PRN (Reason: dry nasal passages) Qty: 45 0RF meloxicam 15 mg tablet 15 mg PO DAILY PRN (DME) thumb spica See Rx Instructions .Route .MEDSUPPLY Qty: 1 0RF Rx Instructions: wear nightly and as much as possible throughout the day Referrals: Cristina Daniels MD [Primary Care Provider] - Stand Alone Forms: Work/School Release Print Language: Colombian
[2024-01-10 20:31] LABS: Influenza A PCR NEGATIVE (Negative); Influenza B PCR NEGATIVE (Negative); Resp Syncy Virus RNA Qual PCR NEGATIVE (Negative); SARS COV2 PCR INHOUSE NEGATIVE (Negative)
[2024-01-10 22:17] VITALS: BP 114/63; PULSE 78; RESP 20; TEMP 36.6; O2SAT 97
[2024-01-10] MEDS: predniSONE 20 MG TABLET 40 MG PO (22:18)
[2024-01-10] MEDS: Benzonatate 100 MG CAPSULE PO (22:19)
[2024-01-11 00:45] VITALS: BP 114/63; PULSE 78; RESP 20; TEMP 36.6; O2SAT 97
== END 2024-01-10 22:23 | disposition home or self-care (01) ==
PROVIDERS: Physician Assistant; Emergency Provider Emergency Medicine; PCP Internal Medicine
DX: R05.9 Cough, unspecified (principal); R09.81 Nasal congestion; Z79.899 Other long term (current) drug therapy; Z03.818 Encounter for observation for suspected exposure to other biological agents ruled out
CPT/HCPCS: 0241U; 71046; 99282; 99283

== ENCOUNTER 2024-07-30 09:51 | Outpatient (AMB) | payer OTHER, SELFPAY ==
--- NOTE | 2024-07-30 10:04 | A.OFFPC_ITS ---
Vital Signs 07/30/24 10:05 Height 5 ft Weight 157 lb BMI 30.7 BP 118/78 Blood Pressure Location Lt brachial Position Sitting Intake Visit Reasons: Annual Exam Intake Note: Patient here for a physical exam, c/o hemorrhoids, cough x2 months Prosthetic Aides Teacher Required: Yes Prosthetic Aides Teacher Language: Spooling Supervisor Name: Cristina Giraldo MD Information Interpreted: non-clinical & clinical Accompanied by: Grand Child Allergies oxycodone [From PERCOCET] Allergy (Unknown, Verified 07/30/24 12:37) NAUSEA & VOMITING Medication List - Last Reconciled 07/30/24 by Cristina Giraldo MD [thumb spica wear nightly and as much as possible throughout the day] Tobacco use date assessed: 07/30/24 Dental Screening Dental Screen Date: 07/30/24 Did you have a dental visit in the last 12 months?: Yes Did you have a dental problem in the last 6 months where you did not have access to dental care?: No Was dental information given to patient?: Patient has dentist HPI HPI Comments History of Present Illness Details This is a 44-year-old female that comes for her physical exam. Mammogram done last year and has an appointment for this year. Pap smears are up-to-date and has history of cervical cancer with hysterectomy. Needs Tdap and flu vaccine that will be place today. No chest pain or shortness on breath. Complains of hemorrhoids. Also has a productive cough that has been present for 2 months most likely due to allergies. Has mild major depression and follows with counseling. 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 1. Little interest or pleasure in doing things: several days 2. Feeling down, depressed, or hopeless: several days 3. Trouble falling or staying asleep, or sleeping too much: several days 4. Feeling tired or having little energy: several days 5. Poor appetite or overeating: several days 6. Feeling bad about yourself - or that you are a failure or have let yourself or your family down: not at all 7. Trouble concentrating on things, such as reading the newspaper or watching television: not at all 8. Moving or speaking so slowly that other people could have noticed. Or the opposite - being so fidgety or restless that you have been moving around a lot more than usual: not at all 9. Thoughts that you would be better off or of hurting yourself in some way: not at all Total score: 5 Depression Screening Interpretation: Positive Depression Screening Follow-up: Existing condition, Community Mental Health Worker F/U and Follow-up Visit Requested Depression Screening Done: Yes 92608 - PHQ-9 Billing: Yes Source: Developed by Drs. Rj Cano, Yanelis Blancas, Gagan Bhakta and colleagues, with an educational lizandro from [employer]. Thrive Questionnaire Date Thrive assessed: 07/30/24 I am a: Patient What is your living situation today?: I have a steady place to live Within the past 12 months, did the food you bought not last and you didn't have the money to get more?: Never true Within the past 12 months, did you worry whether your food would run out before you got money to buy more?: Never true Do you have trouble paying for medicines?: No Do you have trouble getting transportation to medical appointments?: No Do you have trouble paying your heating and electricity bill?: No Do you have trouble taking care of your child, family member or friend?: No Do you have trouble with day-to-day activities such as bathing, preparing meals, shopping, managing finances, etc.?: No Are you currently unemployed and looking for a job?: No Are you interested in more education?: No Please select the resources that you would like help with: None Currently or been in a relationship where the following occur: No concerns reported THRIVE Score: 0 AUDIT C Alcohol Use Questionnaire (AUDIT-C) 1. How often do you have a drink containing alcohol?: Never Total Score: 0 Score Reviewed/Action Taken: No SADI-7 AMB Questionnaire SADI-7 Date SADI - 7 assessed: 07/30/24 Feeling nervous, anxious, or on edge: 0 = Not at all Not being able to stop or control worryin = Not at all Worrying too much about different things: 0 = Not at all Trouble relaxin = Not at all Being so restless that it is hard to sit still: 0 = Not at all Becoming easily annoyed or irritable: 0 = Not at all Feeling afraid as if something awful might happen: 0 = Not at all Total SADI-7 score (0-4 normal; 5-9 mild; 10-14 moderate; 15-21 severe): 0 Source: Developed by Drs. Rj Cano, Yanelis Blancas, Gagan Bhakta and colleagues, with an educational lizandro from [employer]. SADI-7 Assessment Billing SADI-7 Assessment Tool: SADI-7 Assessment 08210 Review of Systems Const All systems reviewed & are unremarkable except as noted in HPI and below Card Denies chest pain at rest, Denies chest pain with activity, Denies edema, Denies irregular heart rhythm, Denies claudication, Denies dyspnea, Denies dyspnea on exertion, Denies orthopnea, Denies paroxysmal nocturnal dyspnea and Denies slow heart rate Resp Denies cough, Denies dyspnea and Denies dyspnea on exertion GI Denies abdominal pain, Denies change in bowel habits, Denies excessive flatus, Denies nausea and Denies vomiting Denies urinary incontinence, Denies urinary hesitancy and Denies urinary urgency Musc Denies abnormal gait, Denies atrophy, Denies deformity and Denies limited range of motion Skin/Breast Denies bleeding lesions, Denies changing lesions and Denies rash Neuro Denies abnormal gait and Denies lack of coordination Physical exam (Primary Care) Vital Signs: Last Vital Signs BP 118/78 07/30/24 10:05 BMI result Body Mass Index 30.7 BMI Assessment/Plan discussion: High BMI High, discussed plan: lifestyle, weight reduction, dietary and physical activity Tobacco/Smoking Status: Tobacco use Status Tobacco use date assessed 07/30/24 07/30/24 10:11 Patient Tobacco Use Status Never used Tobacco 07/30/24 10:11 Tobacco use type 07/03/23 13:26 e-Cigarette/Vaping Use Never Used 07/30/24 10:11 PHQ-9: PHQ-9 Score PHQ-9: Total score 5 07/30/24 10:54 Depression Screening Interpretation: Positive Depression Screening Follow-up: Existing condition, Community Mental Health Worker F/U and Follow-up Visit Requested Thrive Assessment: Date of Thrive Assessment Date Thrive assessed 07/30/24 07/30/24 10:11 Currently or been in a relationship where the following occur: No concerns reported HENMT Head: Yes normal to inspection, Yes normocephalic and Yes atraumatic Ears: external ears normal Eyes General: appearance normal, both eyes and all related structures Eyelids: Yes eyelids normal Conjunctivae: conjunctivae normal Neck Neck: Yes normal visual inspection and Yes supple Resp Effort & Inspection: normal respiratory effort Auscultation: clear to auscultation bilaterally Cardio Jugular venous distension: no JVD Rate: regular rate Rhythm: regular rhythm Heart sounds: S1 normal heart sound present and S2 normal heart sound present GI Inspection: Yes normal to inspection Palpation (GI): Soft to palpation and nontender Auscultation: normal bowel sounds Skin General skin exam: no rashes or lesions noted Neuro General: no focal motor deficits Extrem General: Yes full ROM Psych Appearance: grossly normal Immunizations Boostrix Tdap 2.5 Lf unit-8 mcg-5 Lf/0.5 mL intramuscular syringe Performing Provider: Cristina Giraldo MD [facility] Administered by: ROSARIO Craft on 07/30/24 10:52 Dose Route Admin Location Dispensed Lot Number Expiration Date [facility] Fuel Quality Tech 0.5 mL IM Left Deltoid 0.5 mL [id number] 09/21/26 62785-409-18 [employer] VIS Given Date VIS Provided VIS Publication Date 07/30/24 Single Vaccine 21 Eligibility Eligibility Date Funding Source Not [facility] Eligible 07/30/24 Private Coding Level of Care Code Est Pt Level 3 (89262) Est Pt Prev Care 40-64y(12395) Diagnoses Physical exam Z00.00 Mild major depression F32.0 Hemorrhoids K64.9 Additional Codes PHQ-9 - 76009 - PHQ-9 Billing: Yes ([id number]) SADI-7 Assessment Billing - SADI-7 Assessment Tool: SADI-7 Assessment 53935 ([id number]) Time Spent (min) 31 Assessment & Plan Assessment & Plan (1) Physical exam: Code(s): Z00.00 - Encounter for general adult medical examination without abnormal findings Category: Medical Plan: Repeat in a year. (2) Mild major depression: Code(s): F32.0 - Major depressive disorder, single episode, mild Category: Medical Plan: Follow-up with counseling. (3) Hemorrhoids: Code(s): K64.9 - Unspecified hemorrhoids Category: Medical Plan: Referred to surgery. Orders: Orders Comprehensive [place]. Panel Fast Today Z00.00 - Encounter for general adult medical examination without abnormal findings Vitamin D 25-OH Total Today E55.9 - Vitamin D deficiency, unspecified TDaP Immunization Today Z23 - Encounter for immunization Lipid Panel Today Z00.00 - Encounter for general adult medical examination without abnormal findings Referrals General Surgery Referral K64.9 - Unspecified hemorrhoids
[2024-07-30 10:05] VITALS: BP 118/78; BMI 30.7
--- OUTSIDE RECORDS SUMMARY | 2024-07-30 11:16 | XMS_ITS | Encounter Summary ---
Author Organization [facility] Address [address] [place] [address] Care Team Providers Care Molding Sander Name Role Phone Unavailable Primary Care Provider Unavailabl e Encounter Details Date Type Department Care Team (Latest Contact Info) Description 04/11/2022 Abstract C CONVERSIONS Dental, Provider, DDS Social History Tobacco Use Types Packs/Day Years Used Date Smoking Tobacco: Never Assessed Sex and Gender Information Value Date Recorded Sex Assigned at Male 04/04/2022 10:38 AM EDT Legal Sex Male 10:38 AM EDT Gender Identity Female 04/04/2022 10:38 AM EDT Sexual Orientation Choose not to disclose 2021 10:38 AM EDT documented as of this encounter Plan of Treatment Not on file documented as of this encounter Visit Diagnoses Not on filedocumented in this encounter
--- OUTSIDE RECORDS SUMMARY | 2024-07-30 11:16 | XMS_ITS | Clinical Summary ---
Author Organization [facility] Address [address] [place] [address] Care Team Providers Care Guest Services Officer Name Role Phone Unavailable Primary Care Provider Unavailabl e Allergies No known active allergies Medications Medication Sig Dispensed Refills Start Date End Date Status lidocaine-prilocaine (EMLA) cream Apply topically as needed. 30 g 0 07/16/2021 Active Active Problems No known active problems Social History Tobacco Use Types Packs/Day Years Used Date Smoking Tobacco: Never Smokeless Tobacco: Never Sex and Gender Information Value Date Recorded Sex Assigned at Not on file Gender Identity Not on file Sexual Orientation Not on file Job Start Date Occupation Industry Not on file Not on file Not on file Plan of Treatment Health Maintenance Due Date Last Done Comments Hepatitis B Vaccines (1 of 3 - 3-dose series) 1981 Hepatitis C Screening 1981 COVID-19 Vaccine (#1) 1981 Depression Screening 1993 Preventative Health Evaluation 1999 DTap / Tdap / Td (1 - Tdap) 2000 Cervical Cancer Screening (P ap Smear) 2002 Influenza Vaccine (#1) 2024 Pneumococcal Vaccine Aged Out No long er eligible based on patient's age to complete this topic RSV Ped < 20 months Aged Out No longe r eligible based on patient's age to complete this topic
--- OUTSIDE RECORDS SUMMARY | 2024-07-30 11:16 | XMS_ITS | Clinical Summary ---
Author Organization [employer] Address [address] [place] [address] Care Team Providers Care Hole Digger Operator Name Role Phone Unavailable Primary Care Provider Unavailabl e Social History Tobacco Use Types Packs/Day Years Used Date Smoking Tobacco: Never Assessed Sex and Gender Information Value Date Recorded Sex Assigned at Male 04/04/2022 10:38 AM EDT Legal Sex Male 10:38 AM EDT Gender Identity Female 04/04/2022 10:38 AM EDT Sexual Orientation Choose not to disclose 2021 10:38 AM EDT Plan of Treatment Health Maintenance Due Date Last Done Comments Depression Screening 1981 HIV Screening 1981 Lipid Panel 1981 Alcohol/Substance Use Screening 1993 Tobacco Screening 1993 Family Planning (PISQ) 1996 Hepatitis C Screening 1999 DTaP/Tdap/Td Vaccines (1 - Tdap) 2000 Hepatitis B Vaccines (1 of 3 - 19+ 3-dose series) 2000 COVID-19 Vaccine ( - season) 2024 04/12/2023, 06/26/2021, 11/06/2020, Additional history exists Influenza Vaccine (#1) 2024 04/12/2023, 2020 Zoster Vaccines (1 of 2) 2031 RSV Patients and Patients Aged 60 years or older (1 - 1-dose 75+ series) 2056 HIB Vaccines Aged Out No longer eligi ble based on patient's age to complete this topic HPV Vaccines Aged Out No longer eligi ble based on patient's age to complete this topic Hepatitis A Vaccines Aged Out No long er eligible based on patient's age to complete this topic IPV Vaccines Aged Out No longer eligi ble based on patient's age to complete this topic Meningococcal Vaccine Aged Out No myriam radha eligible based on patient's age to complete this topic Pneumococcal Vaccine: Pediatrics (0 to 5 Years) and At-Risk Patients (6 to 49) Years) Aged Out No longer eligible based on patient's age to complete this topic RSV under 20 months Aged Out No longe r eligible based on patient's age to complete this topic Rotavirus Vaccines Aged Out No longer eligible based on patient's age to complete this topic
== END 2024-07-30 10:51 | disposition home or self-care (01) ==
PROVIDERS: PCP Internal Medicine; Visit Provider Internal Medicine
DX: Z00.00 Encounter for general adult medical examination without abnormal findings (principal); F32.0 Major depressive disorder, single episode, mild; K64.9 Unspecified hemorrhoids; Z23 Encounter for immunization

== ENCOUNTER → 2024-07-30 09:51 | Outpatient (BNVA) | payer OTHER, SELFPAY | PROVIDERS: PCP Internal Medicine; Visit Provider Internal Medicine | DX: Z00.00 Encounter for general adult medical examination without abnormal findings (principal); Z23 Encounter for immunization; F32.0 Major depressive disorder, single episode, mild; K64.9 Unspecified hemorrhoids | CPT/HCPCS: 90471; 90715; 96127; 99396 ==

== ENCOUNTER 2024-08-01 09:33 | Outpatient (REF) | payer OTHER, SELFPAY ==
--- OUTSIDE RECORDS SUMMARY | 2024-08-01 10:46 | XMS_ITS | Clinical Summary ---
Author Organization [facility] Address [address] [place] [address] Care Team Providers Care Corn Crop Supervisor Name Role Phone Unavailable Primary Care Provider [...]
== END 2024-08-01 09:34 | disposition home or self-care (01) ==
LOC: HO.MAMMO 09:33
PROVIDERS: PCP Internal Medicine; Visit Provider Internal Medicine
DX: Z12.31 Encounter for screening mammogram for malignant neoplasm of breast (principal)
CPT/HCPCS: 77063; 77067

== ENCOUNTER → 2024-08-01 09:45 | Outpatient (BNV) | payer OTHER, SELFPAY | PROVIDERS: PCP Internal Medicine; Visit Provider Internal Medicine | DX: Z12.31 Encounter for screening mammogram for malignant neoplasm of breast (principal) | CPT/HCPCS: 77063; 77067 ==

== ENCOUNTER 2024-08-07 14:33 | Outpatient (AMB) | payer OTHER, SELFPAY ==
--- NOTE | 2024-08-07 14:34 | MHC.OFFVIS ---
Vital Signs 08/07/24 14:45 Height 5 ft Weight 159 lb BMI 31.0 Intake Visit Reasons: Hemorrhoids Intake Note: This patient presents for hemorrhoids assessment. Pt c/o; reports no rectal bleeding, reports constipation. Manager Of Operations Required: Yes Manager Of Operations Language: Business Unit Manager Services: Manager Of Operations Present (Sonia) Information Interpreted: non-clinical & clinical Accompanied by: Self / Same As Patient Allergies oxycodone [From PERCOCET] Allergy (Unknown, Verified 08/07/24 14:35) NAUSEA & VOMITING HPI HPI Hemorrhoids: Details: [age] year old female hemorrhoid here for hemorrhoid issues. She describes frequent perianal itching. She says that her hemorrhoids seemed to come out periodically. She denies any significant pain or bleeding. She does admit to a long history of constipation. 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[employer] Current occupational exposures/hazards: No Cognitive needs: No Hearing needs: No Vision needs: No Review of Systems Const Denies chills and Denies fever(s) Card Denies chest pain, Denies dyspnea and Denies dyspnea on exertion Resp Denies cough, Denies dyspnea and Denies dyspnea on exertion GI Denies hematochezia and Denies change in bowel habits Denies hematuria Musc Denies back pain and Denies limited range of motion Neuro Denies focal weakness and Denies convulsions Psych Denies depression and Denies mood swings Physical Exam Vital Signs: BMI result Body Mass Index 31.0 Const General: comfortable and no acute distress Orientation/consciousness: patient oriented x3 Neck Neck: Yes no lymphadenopathy Resp Auscultation: clear to auscultation bilaterally Cardio Rhythm: regular rhythm GI Other: She does not want to have a rectal exam or anoscopy today Palpation (GI): Soft to palpation, nontender and no guarding Neuro General: patient oriented x3 Assessment & Plan Assessment & Plan (1) Hemorrhoids: Code(s): K64.9 - Unspecified hemorrhoids Category: Medical Plan: She has refusing a rectal exam today and says she will come back to have this done down the line She does complain of constipation. I will prescribe her Colace for this in the meantime. She says scheduled for a follow-up. Coding Level of Care Code New Pt Level 3 (96458) Diagnoses Hemorrhoids K64.9
[2024-08-07 14:45] VITALS: BMI 31.0
--- OUTSIDE RECORDS SUMMARY | 2024-08-07 17:32 | XMS_ITS | Clinical Summary ---
Author Organization [facility] Address [address] [place] [address] Care Team Providers Care Marketing Underwriter Name Role Phone Unavailable Primary Care Provider [...]
== END 2024-08-07 14:53 | disposition home or self-care (01) ==
LOC: HO.HGS 14:33
PROVIDERS: PCP Internal Medicine; Referring Provider Internal Medicine; Visit Provider Surgery
DX: K64.9 Unspecified hemorrhoids (principal)
CPT/HCPCS: 99203

== ENCOUNTER → 2024-08-07 14:33 | Outpatient (BNVA) | payer OTHER, SELFPAY | PROVIDERS: PCP Internal Medicine; Referring Provider Internal Medicine; Visit Provider Surgery | DX: K64.9 Unspecified hemorrhoids (principal) | CPT/HCPCS: 99202 ==

== ENCOUNTER → 2024-09-18 15:03 | Outpatient (BNVA) | payer OTHER, SELFPAY | PROVIDERS: PCP Internal Medicine; Visit Provider Surgery | DX: L29.0 Pruritus ani (principal) | CPT/HCPCS: 46600; 99212 ==

== ENCOUNTER → 2024-09-18 15:03 | Outpatient (AMB) | payer OTHER, SELFPAY ==
--- NOTE | 2024-09-18 15:16 | MHC.OFFVIS ---
Vital Signs 09/18/24 15:21 Height 5 ft Weight 157 lb BMI 30.7 BP 117/71 Blood Pressure Location Rt brachial Position Sitting Pulse 70 Intake Visit Reasons: Hemorrhoids, anoscopy Intake Note: Patient here to follow up hemorrhoids. Due for Anascopy exam. Patient c/o: constipation but colace helps. Feeling anxious about today's exam. Residential Youth Counselor Required: No Accompanied by: Self / Same As Patient Allergies oxycodone [From PERCOCET] Allergy (Unknown, Verified 09/18/24 15:22) NAUSEA & VOMITING HPI HPI Hemorrhoids, anoscopy: Details: [age] year old female hemorrhoid here for a follow-up for hemorrhoid issues. I had seen her last 08/07/2024 for complaints of frequent perianal itching. She says that her hemorrhoids seemed to come out periodically. She denies any significant pain or bleeding. She had refused a rectal exam and anoscopy at that time. She has a history of chronic constipation She says she is willing to undergo anoscopy today. She denies any new changes. She essentially describes significant perianal itching. 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[employer] Current occupational exposures/hazards: No Cognitive needs: No Hearing needs: No Vision needs: No Review of Systems Const Denies chills and Denies fever(s) Card Denies chest pain, Denies dyspnea and Denies dyspnea on exertion Resp Denies cough, Denies dyspnea and Denies dyspnea on exertion GI Denies hematochezia and Denies change in bowel habits Denies hematuria Musc Denies back pain and Denies limited range of motion Neuro Denies focal weakness and Denies convulsions Psych Denies depression and Denies mood swings Physical Exam Vital Signs: Last Vital Signs Pulse 70 09/18/24 15:21 BP 117/71 09/18/24 15:21 BMI result Body Mass Index 30.7 Const General: comfortable and no acute distress Orientation/consciousness: patient oriented x3 Neck Neck: Yes no lymphadenopathy Resp Auscultation: clear to auscultation bilaterally Cardio Rhythm: regular rhythm GI Other: Rectal exam shows small external hemorrhoids. There is no fissure seen. There were no perianal lesions. Palpation (GI): Soft to palpation, nontender and no guarding Neuro General: patient oriented x3 Office Procedures Anoscopy She was in micheal-knife position. The anoscope was gently inserted. A full examination of the anal canal was done. There were some small external and internal hemorrhoidal columns. There were no lesions in the anal canal. There was no bleeding. There was no fissure. There was no ulceration. There was no induration or tenderness. [id number] Assessment & Plan Assessment & Plan (1) Pruritus ani: Code(s): L29.0 - Pruritus ani Category: Medical Plan: She does have internal and external hemorrhoids but these are non bulky. I told her that I would not recommend going ahead with hemorrhoidectomy at this time. I am going to prescribe her Calmoseptine for her significant perianal itching I advised her on controlling her constipation.She can continue with the Colace and I had recommended fiber supplement as well. She can follow up with me on a p.r.n. basis. Coding Level of Care Code Est Pt Level 3 (17929) Diagnoses Pruritus ani L29.0 CPT Codes Details - CPT: 57009-[id number] ([id number])
[2024-09-18 15:21] VITALS: BP 117/71; PULSE 70; BMI 30.7
--- OUTSIDE RECORDS SUMMARY | 2024-09-18 17:43 | XMS_ITS | Clinical Summary ---
Author Organization [facility] Address [address] [place] [address] Care Team Providers Care Salicylic Acid Blender Name Role Phone Unavailable Primary Care Provider [...]
--- OUTSIDE RECORDS SUMMARY | 2024-09-18 17:43 | XMS_ITS ---
Author Name [facility] Organization Unknown Encounters Encounter Type Encounter Reason Primary Diagnosis Location Date Ambulatory [facility] 06/27/2024 Care Team Organization Name Specialty Phone Email Start Date End [facility] 07/09/2024
== END ==
LOC: HO.HGS 15:04
PROVIDERS: PCP Internal Medicine; Visit Provider Surgery
DX: L29.0 Pruritus ani (principal)
CPT/HCPCS: 46600; 99213

== ENCOUNTER 2025-01-07 13:57 | Outpatient (AMB) | payer OTHER, SELFPAY ==
[2025-01-07 14:06] VITALS: BP 112/72; BMI 30.7
--- NOTE | 2025-01-07 14:06 | MHC.PC.OV ---
Vital Signs 01/07/25 14:06 Height 5 ft Weight 157 lb BMI 30.7 BP 112/72 Blood Pressure Location Lt brachial Position Sitting Intake Visit Reasons: uncontrolled Thyroid Intake Note: Patient here for a follow up thyroid In Home Caregiver Required: No Accompanied by: Self / Same As Patient Allergies oxycodone (From PERCOCET) Allergy (Unknown, Verified 01/07/25 14:15) NAUSEA & VOMITING Medication List - Last Reconciled 01/07/25 by Cristina Giraldo MD docusate sodium (Colace) 100 mg PO DAILY [thumb spica wear nightly and as much as possible throughout the day] Tobacco use date assessed: 07/30/24 Dental Screening Dental Screen Date: 07/30/24 HPI HPI Comments History of Present Illness Details The patient is a 44-year-old female presenting with follow-up on multiple health issues including anemia, thyroid disorder, and mental health concerns. The patient reports an allergy to Percocet, which causes dizziness, nausea, and vomiting. She has a history of anemia with a hemoglobin level of 11.3 g/dL and vitamin D deficiency. Also has low white blood cells. The patient also has leukopenia and elevated liver enzymes, which were noted in previous lab results. Her thyroid disorder is currently uncontrolled, and she is under the care of a psychologist for depression and anxiety. She experiences insomnia, for which she takes medication at night, although she does not recall the name of the medication. 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[employer] Current occupational exposures/hazards: No Cognitive needs: No Hearing needs: No Vision needs: No Questionnaire Thrive Questionnaire Date Thrive assessed: 07/24/24 I am a: Patient What is your living situation today?: I have a steady place to live Within the past 12 months, did the food you bought not last and you didn't have the money to get more?: Never true Within the past 12 months, did you worry whether your food would run out before you got money to buy more?: Never true Do you have trouble paying for medicines?: No Do you have trouble getting transportation to medical appointments?: No Do you have trouble paying your heating and electricity bill?: No Do you have trouble taking care of your child, family member or friend?: No Do you have trouble with day-to-day activities such as bathing, preparing meals, shopping, managing finances, etc.?: No Are you currently unemployed and looking for a job?: No Are you interested in more education?: No Please select the resources that you would like help with: None Currently or been in a relationship where the following occur: No concerns reported THRIVE Score: 0 SADI-7 AMB Questionnaire SAID-7 Date SADI - 7 assessed: 07/30/24 Source: Developed by Drs. Rj Cano, Yanelis Blancas, Gagan Bhakta and colleagues, with an educational lizandro from [employer]. Review of Systems Const All systems reviewed & are unremarkable except as noted in HPI and below Card Denies chest pain at rest, Denies chest pain with activity, Denies edema, Denies irregular heart rhythm, Denies claudication, Denies dyspnea, Denies dyspnea on exertion, Denies orthopnea, Denies paroxysmal nocturnal dyspnea and Denies slow heart rate Resp Denies cough, Denies dyspnea and Denies dyspnea on exertion GI Denies abdominal pain, Denies change in bowel habits, Denies excessive flatus, Denies nausea and Denies vomiting Denies urinary incontinence, Denies urinary hesitancy and Denies urinary urgency Musc Denies atrophy, Denies deformity and Denies limited range of motion Skin/Breast Denies bleeding lesions, Denies changing lesions and Denies rash Physical exam (Primary Care) Vital Signs: Last Vital Signs BP 112/72 01/07/25 14:06 BMI result Body Mass Index 30.7 Tobacco/Smoking Status: Tobacco use Status Tobacco use date assessed 07/30/24 01/07/25 14:15 Patient Tobacco Use Status Never used Tobacco 01/07/25 14:15 Tobacco use type 07/03/23 13:26 e-Cigarette/Vaping Use Never Used 01/07/25 14:15 Thrive Assessment: Date of Thrive Assessment Date Thrive assessed 07/24/24 01/07/25 14:15 Currently or been in a relationship where the following occur: No concerns reported Neck Neck: Yes normal visual inspection and Yes supple Resp Effort & Inspection: normal respiratory effort Auscultation: clear to auscultation bilaterally Cardio Jugular venous distension: no JVD Rate: regular rate Rhythm: regular rhythm Heart sounds: S1 normal heart sound present and S2 normal heart sound present Extrem General: Yes full ROM Coding Level of Care Code Est Pt Level 4 (42236) Complex EM visit Add On G2211 Diagnoses Mild major depression F32.0 Thyroid disease E07.9 Transaminitis R74.01 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 Persistent insomnia G47.00 Time Spent (min) 23 Assessment & Plan Assessment & Plan (1) Mild major depression: Code(s): F32.0 - Major depressive disorder, single episode, mild Category: Medical (2) Thyroid disease: Code(s): E07.9 - Disorder of thyroid, unspecified Category: Medical (3) Transaminitis: Code(s): R74.01 - Elevation of levels of liver transaminase levels Category: Medical (4) Bicytopenia: Code(s): D75.89 - Other specified diseases of blood and blood-forming organs Category: Medical (5) Persistent insomnia: Code(s): G47.00 - Insomnia, unspecified Category: Medical Plan The plan includes repeating laboratory tests to monitor anemia, vitamin D levels, leukopenia, and liver enzymes. The thyroid function will also be reassessed due to its current uncontrolled status. The patient is advised to continue her current medication for insomnia and to follow up with her psychologist for ongoing management of depression and anxiety. Patient was informed and verbally consented to the use of an ambient scribe for clinic note documentation during this visit. Orders: Orders Thyroid Stimulating Hormone Today E07.9 - Disorder of thyroid, unspecified Vitamin D 25-OH Total Today E55.9 - Vitamin D deficiency, unspecified IRON PROFILE Today D64.9 - Anemia, unspecified Free T4 (Free Thyroxine) Today E07.9 - Disorder of thyroid, unspecified Thyroglobulin Antibodies Today E07.9 - Disorder of thyroid, unspecified Hepatitis A,B,C Profile Today R74.01 - Elevation of levels of liver transaminase levels Vitamin B12 and Folate Today E53.8 - Deficiency of other specified B group vitamins Complete Blood Count Auto Diff Today D64.9 - Anemia, unspecified Thyroid Peroxidase Antibodies Today E07.9 - Disorder of thyroid, unspecified Comprehensive Met. Panel Today R74.01 - Elevation of levels of liver transaminase levels
--- OUTSIDE RECORDS SUMMARY | 2025-01-07 14:40 | XMS_ITS | Encounter Summary ---
Author Organization [facility] Address [address] [place] [address] Care Team Providers Care Wildlife Removal Specialist Name Role Phone Unavailable Primary Care Provider Unavailabl e Encounter Details Date Type Department Care Team (Latest Contact Info) Description 04/11/2022 Abstract [facility] CONVERSIONS Dental, Provider, DDS Social History Tobacco [...]
--- OUTSIDE RECORDS SUMMARY | 2025-01-07 14:40 | XMS_ITS | Clinical Summary ---
Author Organization [facility] Address [address] [place] [address] Care Team Providers Care Configuration Management Architect Name Role Phone Unavailable Primary Care Provider [...] (P ap Smear) 2002 Influenza Vaccine (#1) 2025 Pneumococcal Vaccine Aged Out No long er eligible based on patient's age to complete this topic RSV Ped < 20 months Aged Out No longe r eligible based on patient's age to complete this topic
== END 2025-01-07 14:24 | disposition home or self-care (01) ==
LOC: HO.HMCH 13:58
PROVIDERS: PCP Internal Medicine; Visit Provider Internal Medicine
DX: F32.0 Major depressive disorder, single episode, mild (principal); E07.9 Disorder of thyroid, unspecified; R74.01 Elevation of levels of liver transaminase levels; D75.89 Other specified diseases of blood and blood-forming organs; G47.00 Insomnia, unspecified

== ENCOUNTER → 2025-01-07 13:57 | Outpatient (BNVA) | payer OTHER, SELFPAY | PROVIDERS: PCP Internal Medicine; Visit Provider Internal Medicine | DX: F32.0 Major depressive disorder, single episode, mild (principal); E55.9 Vitamin D deficiency, unspecified; G47.00 Insomnia, unspecified; E07.9 Disorder of thyroid, unspecified; R74.01 Elevation of levels of liver transaminase levels; D75.89 Other specified diseases of blood and blood-forming organs; D64.9 Anemia, unspecified; E53.8 Deficiency of other specified B group vitamins | CPT/HCPCS: 99212 ==